=== PATIENT | male | born 1945 | race Caucasian/White ===

== ENCOUNTER → 2019-11-30 16:23 | Outpatient (BNVA) | payer MEDICARE, SELFPAY | PROVIDERS: Family Provider Family Medicine; PCP Family Medicine; Visit Provider Urology | DX: Z12.5 Encounter for screening for malignant neoplasm of prostate (principal); N47.1 Phimosis | CPT/HCPCS: 81001 ==

== ENCOUNTER → 2021-11-19 10:00 | Outpatient (BNVA) | payer MEDICARE, SELFPAY | PROVIDERS: PCP Family Medicine; Visit Provider Family Medicine | DX: R35.1 Nocturia (principal); I42.2 Other hypertrophic cardiomyopathy; D69.6 Thrombocytopenia, unspecified | CPT/HCPCS: 80053; 80061; 84153; 85025 ==

== ENCOUNTER → 2022-05-14 09:28 | Outpatient (BNVA) | payer MEDICARE, SELFPAY | PROVIDERS: PCP Family Medicine; Visit Provider Family Medicine | DX: I48.91 Unspecified atrial fibrillation (principal) | CPT/HCPCS: 80053; 85025 ==

== ENCOUNTER → 2023-02-12 09:02 | Outpatient (BNVA) | payer MEDICARE, SELFPAY | PROVIDERS: PCP Family Medicine; Visit Provider Family Medicine | DX: I10 Essential (primary) hypertension (principal) | CPT/HCPCS: 80053; 85025 ==

== ENCOUNTER → 2023-10-15 09:55 | Outpatient (BNVA) | payer MEDICARE, SELFPAY | PROVIDERS: PCP Family Medicine; Visit Provider Family Medicine | DX: I10 Essential (primary) hypertension (principal) | CPT/HCPCS: 80053; 80061; 85025 ==

== ENCOUNTER 2024-12-23 14:54 | Inpatient (IN) | payer MEDICARE, SELFPAY ==
[2024-12-23] VITALS (52 sets, daily range): BP systolic 70–156; BP diastolic 46–100; PULSE 70–127; RESP 16–38; TEMP 36.4; O2SAT 87–100; BMI 29.1
--- NOTE | 2024-12-23 15:07 | ECG_ITS ---
[facility] Test Date: 2024-12-23 Pat Name: John Gomes Department: Room: Gender: Male Information Specialist: : 1945 Requested By: Fer Gibbs Order Number: [id number] Reading MD: DEMETRIS ARCEO Measurements Intervals [place] Rate: 84 P: 0 NV: 0 QRS: -24 QRSD: 122 T: 143 QT: 385 QTc: 458 Interpretive Statements ATRIAL FIBRILLATION BORDERLINE LEFT AXIS DEVIATION [QRS AXIS < -20] POSSIBLE RIGHT VENTRICULAR CONDUCTION DELAY [RSR (QR) IN V1/V2] POSSIBLE LEFT VENTRICULAR HYPERTROPHY [VOLTAGE CRITERIA PLUS LAE OR QRS WIDENING] ST DEVIATION AND MARKED T-WAVE ABNORMALITY, CONSIDER ANTEROLATERAL ISCHEMIA [-0.5+ mV T-WAVE IN I/aVL/V3-V6] Compared to ECG 10/07/2019 10:33:16 T-wave abnormality now present Possible ischemia now present Atrial flutter no longer present ST (T wave) deviation no longer present Electronically Signed On 12-27-2024 23:42:39 GRADUATE ADVISOR by DEMETRIS ARCEO [email or web address] [id number]
--- NOTE | 2024-12-23 15:21 | ECG_ITS ---
[facility] Test Date: 2024-12-23 Pat Name: John Gomes Department: Room: Gender: Male Senior Financial Analyst: : 1945 Requested By: Alida Gibbs Order Number: [id number] Reading MD: DEMETRIS ARCEO Measurements Intervals [place] Rate: 83 P: 0 MN: 0 QRS: -10 QRSD: 122 T: 139 QT: 385 QTc: 453 Interpretive Statements ATRIAL FIBRILLATION POSSIBLE LEFT VENTRICULAR HYPERTROPHY [VOLTAGE CRITERIA PLUS LAE OR QRS WIDENING] ST DEVIATION AND MARKED T-WAVE ABNORMALITY, CONSIDER LATERAL ISCHEMIA [-0.5+ mV T-WAVE IN I/aVL/V5/V6] Compared to ECG 12/23/2024 15:09:34 No significant changes Electronically Signed On 12-27-2024 23:42:32 REFINISH TECHNICIAN by DEMETRIS ARCEO [email or web address] [id number]
--- NOTE | 2024-12-23 15:21 | XR_ITS ---
WS: [id number] Exam: XR chest 1V portable [id number] Date/Time of Exam: 12/23/2024 3:22 PM Reason For Exam: Shortness of breath Comparison 12/21/2023. Lungs are fully expanded and clear. Normal cardiomediastinal silhouette. Median sternotomy and signs of previous CABG surgery. No pleural effusion. Unremarkable bony structures. XR/XR chest 1V portable [id number] IMPRESSION: 1. Negative chest.
--- NOTE | 2024-12-23 15:47 | W.ED.SOB ---
HPI - SOB/Dyspnea General: Chief Complaint: Shortness of Breath/Dyspnea Stated Complaint: SOB,dizzy Time Seen by Provider: 12/23/24 15:40 History of Present Illness: HPI Narrative: 71-year-old male presents emergency room complaining of shortness of breath weakness for the last week. Patient has a history of congestive heart failure few weeks ago they increased his Lasix added a second medicine but he was taken off of it after a few days due to his kidney function worsening. He has chronic orthopnea. He has noticed worsening shortness of breath both conversationally and with exertion. No fever sweats or chills. Patient has a history of atrial fibrillation. Associated symptoms: Deny abdominal pain, chest pain or fever(s) Related Data Home Medications ?Medication ?Instructions ?Recorded ?Confirmed apixaban 5 mg tablet (Eliquis) 5 mg PO BID 11/30/19 12/23/24 baclofen 10 mg tablet 10 mg PO QDAY 11/30/19 12/23/24 furosemide 20 mg tablet 20 mg PO QAM 11/30/19 12/23/24 irbesartan 150 mg tablet 150 mg PO QDAY 11/30/19 12/23/24 melatonin 10 mg capsule 10 mg PO ONCE 11/30/19 12/23/24 metoprolol succinate 50 mg 50 mg PO QDAY 11/30/19 12/23/24 tablet,extended release 24 hr rosuvastatin 20 mg tablet 20 mg PO DAILY 11/13/21 12/23/24 potassium chloride 20 mEq 20 meq PO BID 12/23/24 12/23/24 tablet,extended release(part/cryst) spironolactone 25 mg tablet 25 mg PO DAILY 12/23/24 12/23/24 Allergies Allergy/AdvReac Type Severity Reaction Status Date / Time dabigatran etexilate (From Allergy NA Verified 11/13/21 13:09 Pradaxa) diltiazem Allergy Heart Verified 11/13/21 13:09 issues verapamil Allergy Heart Verified 11/13/21 13:09 issues Review of Systems Const: Denies: fever(s) or chills Card: Denies: chest pain Resp: Reports: dyspnea GI: Denies: abdominal pain : Denies: dysuria, urinary frequency or urinary urgency Musc: Denies: neck pain or back pain Skin/Breast: Denies: rash PFSH ED PFSH: Medical History COPD (chronic obstructive pulmonary disease) ED (erectile dysfunction) Prostate cancer screening Epididymitis Phimosis Surgical History Hx of CABG S/P carpal tunnel release S/P appendectomy Family History Family/Other CAD (coronary artery disease) Stroke Social History Smoking and tobacco/nicotine status: current every day tobacco/nicotine user smokeless tobacco Smokeless tobacco user: chewing tobacco Alcohol intake: never Substance/Drug Use: never Marital status: Current occupational status: retired Physical Exam Const: GENERAL APPEARANCE: cooperative ORIENTATION/CONSCIOUSNESS: Yes awake, Yes oriented to person, Yes oriented to place and Yes oriented to time HENMT: COMMON NORMALS: normocephalic and atraumatic HEAD & SCALP: normocephalic and atraumatic Resp: AUSCULTATION: crackles Cardio: COMMON NORMALS: regular rate, regular rhythm and No murmurs present (Cardio) RATE: regular rate RHYTHM: regular rhythm GI: COMMON NORMALS: Soft to palpation and No hepatosplenomegaly present AUSCULTATION: Yes normoactive bowel sounds PALPATION: Yes Soft to palpation, No Tenderness to palpation present (GI), No Guarding due to palpation present (GI) and Yes No hepatosplenomegaly present Extremity: COMMON NORMALS: normal to inspection, capillary refill normal, no clubbing, cyanosis or edema, no calf tenderness and no pedal edema Neuro: SENSORIUM/ORIENTATION: Yes oriented to person, Yes oriented to place and Yes oriented to time Skin: COMMON NORMALS: no rashes or lesions noted GENERAL SKIN EXAM: no rashes or lesions noted Course Vital Signs: Vital signs: Vital Signs Temperature 98.3 F 12/24/24 04:00 Pulse Rate 78 12/24/24 06:00 Respiratory Rate 19 H 12/24/24 05:15 Blood Pressure 76/57 12/24/24 05:15 Pulse Oximetry 97 12/24/24 05:15 Oxygen Delivery Me thod Nasal Cannula 12/24/24 00:55 Oxygen Flow Rate 2 12/24/24 00:55 MDM - SOB/Dyspnea Medical Decision Making Patient continues to be pain-free. His initial blood pressure was little over 100 and his blood pressure can drop we will put him on a low-dose dopamine and gave a fluid bolus of 500 mL over an hour. His pressure improved with this however his first troponin came back over 200 his initial EKG showed a little bit of lateral ST depression particularly in V4 and very subtly in V5 there is no ST elevation. His second EKG showed marked change with T wave inversion and 2 3 aVF as well as V3 and 4. There is no ST depression as well in V45 and 6. Despite this he continues to remain pain-free. Stat echo was ordered. He was also noted to begin to need oxygen was started on 2 L his influenza is positive chest x-ray did not show any significant pulmonary edema or infiltrates. Discussed with Dr. Brown he concurs with the echo I will start him on a heparin also started the patient on Levophed. Dr. Jacome will admit for the hospitalist service. Medical Records I reviewed the patient's medical records. Lab Data I reviewed the patient's lab results. 12/24/24 05:21 12/24/24 05:21 Labs/Radiology: Radiology Impressions Chest X-Ray 12/23/24 15:21 IMPRESSION: 1. Negative chest. Chest/Abdomen/Pelvis CT 12/23/24 17:36 IMPRESSION: 1. No acute abnormality. 2. Mild pulmonary emphysematous changes. 3. Atherosclerosis including coronary artery calcification. IMPRESSION: 1. No acute abnormality. 2. Severe atherosclerosis. 3. Questionable tiny gallstones versus gallbladder sludge. No signs of cholecystitis. COMMENTS: Consistent with the [place] [employer]'s Incidental Findings Committee white paper (J Am Ankit Radiol 2018): Any incidental renal lesion less than 1 cm or classified as too small to characterize, or any incidental cystic renal lesion characterized as simple-appearing, is likely benign. No follow-up imaging is recommended for these lesions per consensus recommendations based on imaging criteria. Laboratory Results WBC 5.94 10^3/uL (3.29-11.43) 12/23/24 16:45 RBC 4.97 10^6/uL (3.85-5.65) 12/23/24 16:45 Hgb 15.10 g/dL (11.27-16.99) 12/23/24 16:45 Hct 45.9 % (37-53) 12/23/24 16:45 MCV 92.4 fl (82-101) 12/23/24 16:45 MCH 30.4 pg (27-33) 12/23/24 16:45 MCHC 32.9 g/dL (30-55) 12/23/24 16:45 RDW 13.7 % (12.1-15.1) 12/23/24 16:45 Plt Count 119 10^3/cmm (157-399) L 12/23/24 16:45 MPV 10.7 fL (7.4-10.4) H 12/23/24 16:45 Neut % (Auto) 79.8 % 12/23/24 16:45 Lymph % (Auto) 10.1 % 12/23/24 16:45 [place] % (Auto) 9.3 % 12/23/24 16:45 Eos % (Auto) 0.3 % 12/23/24 16:45 Baso % (Auto) 0.3 % 12/23/24 16:45 Neut # (Auto) 4.74 10^3/uL (1.8-7.7) 12/23/24 16:45 Lymph # (Auto) 0.6 10^3/uL (0.8-4.8) L 12/23/24 16:45 [place] # (Auto) 0.6 10^3/uL (0.2-0.9) 12/23/24 16:45 Eos # (Auto) 0.0 10^3/uL (0.0-0.8) 12/23/24 16:45 Baso # (Auto) 0.0 10^3/uL (0.0-0.1) 12/23/24 16:45 Nucleated RBC % (auto) 0 % 12/23/24 16:45 Nucleated RBCs # 0.0 /100WBC 12/23/24 16:45 Sodium 135 mmol/L (136-145) L 12/23/24 16:45 Potassium 4.8 mmol/L (3.5-5.1) 12/23/24 16:45 Chloride 94 mmol/L (98-107) L 12/23/24 16:45 Carbon Dioxide 29 mmol/L (22-29) 12/23/24 16:45 Anion Gap 16.8 (5-19) 12/23/24 16:45 BUN 56 mg/dL (8-23) H 12/23/24 16:45 Creatinine 2.0 mg/dL (0.7-1.2) H 12/23/24 16:45 GFR Calculation Not Reportable 12/23/24 16:45 Glucose 116 mg/dL (65-115) H 12/23/24 16:45 Calculated Osmolality 296 mOsm/kg (285-295) H 12/23/24 16:45 Lactic Acid 1.4 mmol/L (0.5-2.2) 12/23/24 16:45 Calcium 9.5 mg/dL (8.5-10.5) 12/23/24 16:45 Iron 27 ug/dL (59-158) L 12/23/24 16:45 TIBC 232 mcg/dl 12/23/24 16:45 % Saturation 11.6 % (20-50) L 12/23/24 16:45 Unsat Iron Binding 205 ug/dL (112-347) 12/23/24 16:45 Total Bilirubin 0.8 mg/dL (0.15-1.2) 12/23/24 16:45 AST 17 U/L (0-40) 12/23/24 16:45 ALT 11 U/L (0-41) 12/23/24 16:45 Alkaline Phosphatase 71 U/L (40-130) 12/23/24 16:45 Troponin T Baseline 202 ng/L (0-15) H* 12/23/24 16:45 NT-Pro-B Natriuret Pep 4522 pg/mL (0-450) H 12/23/24 16:45 Total Protein 7.2 g/dL (6.6-8.7) 12/23/24 16:45 Albumin 3.8 g/dL (3.5-5.2) 12/23/24 16:45 Globulin 3.4 g/dL (1.3-4.6) 12/23/24 16:45 Vitamin B12 452 pg/mL (232-1245) 12/23/24 16:45 Procalcitonin 0.16 ng/mL (0-0.5) 12/23/24 16:45 Influenza A (PCR) Positive (Negative) 12/23/24 15:13 Influenza Type B (PCR) Negative (Negative) 12/23/24 15:13 RSV (PCR) Negative (Negative) 12/23/24 15:13 SARS-CoV-2 (PCR) Negative (Negative) 12/23/24 15:13 All radiology interpretation(s) finalized by discharge Discharge Plan Discharge Patient Disposition: Admitted As Inpatient Admit Provider: Nitin Leigh Clinical Impression: Non-ST elevation [place] (NSTEMI), YANET (acute kidney injury), Influenza A, CHF (congestive heart failure) Condition: Stable Coding Level of Care Code ED Dish Room Worker for Palma Gomez
[2024-12-23 15:55] LABS: Influenza A POSITIVE (Negative); Influenza B NEGATIVE (Negative); Respiratory Syncytial Virus Ce NEGATIVE (Negative); SARS-CoV-2 PCR NEGATIVE (Negative)
--- NOTE | 2024-12-23 16:51 | USCV_ITS ---
John Gomes Age: 79 Gender: M : 1945 Exam Date: 12/23/2024 17:31 Ordering Phys: Fer Gonzalez DO Technologist: CT [place] [facility] [place]ication: hf BP: 141 / 76 HR: 104 Rhythm: Sinus Technical Quality: Adequate MEASUREMENTS (Male / Female) Normal Values 2D ECHO LVOT Diameter 2.0 cm LV Ejection Fraction MOD 4C 33.9 % LV Ejection Fraction MOD 2C 39.9 % LV Ejection Fraction 2C AL 51.9 % LA Diameter 4.7 cm RA Systolic Volume 4C AL 54.0 ml RA Systolic Volume 4C MOD 55.0 ml LA Sys Volume AL 60.0 cm cubed LA Sys Volume Index AL 27.9 cm cubed/m squared Aorta at Sinotubular Diameter 2.3 cm M-MODE LA Ao Ratio MM 0.5 AV Cusp Separation MM 4.0 cm DOPPLER AV Peak Velocity 140.0 cm/s LVOT Peak Velocity 74.0 cm/s AV Area Cont Eq vti 1.9 cm squared AV Area Cont Eq pk 1.6 cm squared MV Peak Velocity 104.0 cm/s MV Area PHT 3.3 cm squared Mitral E to A Ratio 0.8 TR Peak Velocity 237.0 cm/s TR Peak Gradient 22.5 mmHg TV Peak E Velocity 99.0 cm/s PV Peak Velocity 98.0 cm/s FINDINGS Left Ventricle Left ventricle is normal in size. Severe left ventricular hypertrophy. LV systolic function is normal with EF of 50-55%. Right Ventricle Grossly normal Right Atrium Normal in size Left Atrium Dilated Mitral Valve Mild mitral annular calcification. Mild mitral regurgitation. Aortic Valve Grossly normal. No significant stenosis or regurgitation Tricuspid Valve Insufficient TR jet to calculate RVSP Pulmonic Valve Not well visualized Pericardium Grossly normal Aorta Not well visualized IVC Not well visualized CONCLUSIONS Severe left ventricular hypertrophy. LV systolic function is normal with EF of 50-55%. Left atrial dilation Mild mitral regurgitation. Toñito Brown MD (Electronically Signed) Final Date: 23 December 2024 18:26 S
[2024-12-23 16:53] LABS: Basophils % 0.3 %; Eosinophils % 0.3 %; Hematocrit 45.9 % (37-53); Lymphocytes # 0.6 10^3/uL (0.8-4.8); Lymphocytes % 10.1 %; Mean Corpuscular HGB Conc 32.9 g/dL (30-55); Mean Corpuscular Hemoglobin 30.4 pg (27-33); Mean Corpuscular Volume 92.4 fl (82-101); Mean Platelet Volume 10.7 fL (7.4-10.4); Monocytes # 0.6 10^3/uL (0.2-0.9); Monocytes % 9.3 %; Neutrophils # 4.74 10^3/uL (1.8-7.7); Neutrophils % 79.8 %; Nucleated Red Blood Cells % 0 %; Platelet Count 119 10^3/cmm (157-399); Red Blood Count 4.97 10^6/uL (3.85-5.65); Red Cell Distribution Width 13.7 % (12.1-15.1); White Blood Count 5.94 10^3/uL (3.29-11.43)
[2024-12-23] MEDS: DOPamine drip 400 MG/250 ML PREMIX 17.27 MG IV (17:02)
--- NOTE | 2024-12-23 17:07 | PC.NURSE ---
Dr. Gonzalez notified of pt's decreased b/p, pt placed in trendelenburg. manual b/p 90/50 post Dopamine gtt admin and changed pt position. pt AOx4, states feels weak/tired.
[2024-12-23 17:19] LABS: Alanine Aminotransferase 11 U/L (0-41); Albumin Level 3.8 g/dL (3.5-5.2); Alkaline Phosphatase 71 U/L (40-130); Anion Gap 16.8 (5-19); Aspartate Amino Transferase 17 U/L (0-40); Blood Urea Nitrogen 56 mg/dL (8-23); Calcium 9.5 mg/dL (8.5-10.5); Carbon Dioxide 29 mmol/L (22-29); Chloride 94 mmol/L (98-107); Creatinine Clr Calc Pharmacy 34.7164; Globulin 3.4 g/dL (1.3-4.6); Glucose 116 mg/dL (65-115); Osmolality Calculated 296 mOsm/kg (285-295); Potassium 4.8 mmol/L (3.5-5.1); Sodium 135 mmol/L (136-145); Total Bilirubin 0.8 mg/dL (0.15-1.2); Total Protein 7.2 g/dL (6.6-8.7)
--- NOTE | 2024-12-23 17:21 | ECG_ITS ---
[facility] Date: 2024[facility]23 Pat Name: John Gomes Department: Room: Gender: Male Program Evaluator: : 1945 Requested By: Alida Gibbs Order Number: [id number] Reading MD: DEMETRIS ARCEO Measurements Intervals [place] Rate: 84 P: 0 TX: 0 QRS: 51 QRSD: 126 T: -81 QT: 385 QTc: 455 Interpretive Statements ATRIAL FIBRILLATION POSSIBLE RIGHT VENTRICULAR CONDUCTION DELAY [RSR (QR) IN V1/V2] POSSIBLE LEFT VENTRICULAR HYPERTROPHY [VOLTAGE CRITERIA PLUS LAE OR QRS WIDENING] MODERATE T-WAVE ABNORMALITY, CONSIDER ANTEROLATERAL ISCHEMIA [-0.1+ mV T-WAVE IN V3-V6] Compared to ECG 12/23/2024 15:51:31 No significant changes Electronically Signed On 12-27-2024 23:52:02 FIRE TRUCK DRIVER by DEMETRIS ARCEO [email or web address] [id number]
[2024-12-23 17:26] LABS: Troponin(5th) Baseline 202 ng/L (0-15)
--- NOTE | 2024-12-23 17:36 | CTR_ITS ---
PROCEDURE INFORMATION: Exam: CT Chest Without Contrast; Diagnostic Exam date and time: 12/23/2024 6:49 PM Age: 79 years old Clinical indication: Abnormal findings; Abnormal lab test; Abnormal kidney function lab tests; Other: N/a; Cough and shortness of breath; Prior surgery; Surgery date: 6+ months; Surgery type: Cabg. Appy; Cough with SOB and romy. History of copd. ; Additional info: Copd/pna/romy TECHNIQUE: Imaging protocol: Diagnostic computed tomography of the chest without contrast. Radiation optimization: All CT scans at this facility use at least one of these dose optimization techniques: automated exposure control; mA and/or kV adjustment per patient size (includes targeted exams where dose is matched to clinical indication); or iterative reconstruction. COMPARISON: CR XR chest 1V portable [id number] 12/23/2024 3:24 PM RADIATION DOSE METRICS: Total DLP (mGy-cm): 1071.21 FINDINGS: Lungs: Mild paraseptal pulmonary emphysematous changes. Minimal bilateral subpleural reticulation noted suggesting chronic interstitial lung changes. Minimal bibasilar subsegmental atelectasis. Otherwise, the lungs are clear. Pleural spaces: Unremarkable. No pneumothorax. No pleural effusion. Heart: The heart is enlarged. Lymph nodes: Unremarkable. No enlarged lymph nodes. Vasculature: Extensive calcific plaque involves the thoracic aorta and coronary arteries. The thoracic aorta is free of aneurysm. Extensive calcific plaque involves the abdominal aorta and iliac arteries. Bones/joints: Multilevel degenerative changes involve the spine. No acute bony abnormality. Sternotomy wires present. Soft tissues: Unremarkable. PROCEDURE INFORMATION: Exam: CT Abdomen And Pelvis Without Contrast Exam date and time: 12/23/2024 6:49 PM Age: 79 years old Clinical indication: Abnormal findings; Abnormal lab test; Abnormal kidney function lab tests; Other: N/a; Cough and shortness of breath; Prior surgery; Surgery date: 6+ months; Surgery type: Cabg. Appy; Cough with SOB and romy. History of copd. ; Additional info: Copd/pna/romy TECHNIQUE: Imaging protocol: Computed tomography of the abdomen and pelvis without contrast. Radiation optimization: All CT scans at this facility use at least one of these dose optimization techniques: automated exposure control; mA and/or kV adjustment per patient size (includes targeted exams where dose is matched to clinical indication); or iterative reconstruction. COMPARISON: MR MRCP [id number] 08/19/2019 8:30 AM RADIATION DOSE METRICS: Total DLP (mGy-cm): 1971.21 FINDINGS: Liver: Normal. No mass. Gallbladder and biliary ducts: The gallbladder is contracted with tiny gallstones versus gallbladder sludge. Pancreas: Normal. No ductal dilation. Spleen: Normal. No splenomegaly. Adrenal glands: Increased adrenal nodularity noted without suspicious discrete adrenal nodule. Kidneys and ureters: Tiny left cortical renal cysts noted too small to characterize. Stomach and bowel: Scattered colon diverticula. No inflammatory change identified involving the GI tract. No signs of bowel obstruction. Appendix: No evidence of appendicitis. Intraperitoneal space: Unremarkable. No free air. No significant fluid collection. Vasculature: Unremarkable. No abdominal aortic aneurysm. Lymph nodes: Unremarkable. No enlarged lymph nodes. Urinary bladder: The urinary bladder is decompressed with a Yañez catheter. Reproductive: Unremarkable as visualized. Bones/joints: Mild degenerative changes involve the spine. No acute bony abnormality. Soft tissues: Unremarkable. CT/[place] [id number] IMPRESSION: 1. No acute abnormality. 2. Mild pulmonary emphysematous changes. 3. Atherosclerosis including coronary artery calcification. IMPRESSION: 1. No acute abnormality. 2. Severe atherosclerosis. 3. Questionable tiny gallstones versus gallbladder sludge. No signs of cholecystitis. COMMENTS: Consistent with the [employer] [employer]'s Incidental Findings Committee white paper (J Am Ankit Radiol 2018): Any incidental renal lesion less than 1 cm or classified as too small to characterize, or any incidental cystic renal lesion characterized as simple-appearing, is likely benign. No follow-up imaging is recommended for these lesions per consensus recommendations based on imaging criteria.
--- NOTE | 2024-12-23 17:37 | PM.HP ---
Providers/Chief Complaint Primary Care Provider: Emile Fatima MD Chief Complaint: SOB,dizzy History of Present Illness John Gomes is a 79 year old male with past medical history of CABG, hypertension, hyperlipidemia presents to the ER today because of difficulty in breathing which has been getting worse over last 1 week. Patient has a sick contacts with multiple family members having flu a currently. He has been complaining of occasional chest heaviness for last 3 to 4 days. Currently he denies of having any chest pain or heaviness. In the ER he was found to have hypotension with blood pressures of 70 systolic, baseline troponin of 200 and she was started on dopamine drip. Current on examination he is on 2 L of oxygen supplementation, dopamine of 4 with a heart rate of 110 bpm with a blood pressure of 130 systolic. Review of Systems General: Reports: 10 or more systems reviewed and unremarkable except in HPI and below Const: Denies: fever(s), chills, body aches, change in appetite, change in weight, malaise, night sweats, diaphoresis, change in sleep pattern, daytime sleepiness or snoring Eyes: Denies: change in vision, blurry vision, photophobia, eye discomfort or eye discharge ENMT: Denies: throat pain, enlarged tonsils, hoarseness, mouth pain, oral sores, dry mouth, tinnitus, nasal congestion or post nasal drip Card: Denies: chest pain, palpitations, irregular heart rhythm, edema, swelling of feet/ankles, lightheadedness, syncope, pre-syncope, dyspnea on exertion, orthopnea, leg pain with exertion or acrocyanosis Resp: Denies: dyspnea, productive cough, non-productive cough, wheezing, stridor, pain on inspiration, change in phlegm color, hemoptysis or chest congestion GI: Denies: abdominal pain, nausea, vomiting, hematemesis, coffee ground emesis, dysphagia, heartburn, diarrhea, constipation, bloating, GI cramping, change in bowel habits, pain on defecation, hematochezia or melena : Denies: flank pain, difficulty urinating, dysuria, urinary frequency, urinary urgency, urinary hesitancy, urinary dribbling, difficulty starting urination, change in urine stream, nocturia or hematuria Musc: Denies: neck pain, back pain, extremity pain, joint pain, joint swelling, joint redness, joint stiffness or limited range of motion Neuro: Denies: headache(s), numbness in extremities, weakness in extremities, sensory changes, lack of coordination, difficulty walking, frequent falls, dizziness, vertigo, confusion, Slurred speech present, difficulty communicating thoughts or seizure-like activity Psych: Denies: anxiety, depression, mood swings, panic attacks, hopelessness or irritability Endo: Denies: polyuria, polydipsia, tired all the time, cold intolerance, excessive sweating, flushing or heat intolerance Myron/Lymph: Denies: easy bruising or easy bleeding All/Imm: Denies: tongue swelling, facial swelling or acute wheezing Medications/Allergies Home Medications ?Medication ?Instructions ?Recorded ?Confirmed ?Last Taken ?Type apixaban 5 mg tablet (Eliquis) 5 mg PO BID 11/30/19 12/23/24 12/23/24 History baclofen 10 mg tablet 10 mg PO QDAY 11/30/19 12/23/24 12/23/24 History furosemide 20 mg tablet 20 mg PO QAM 11/30/19 12/23/24 12/22/24 History irbesartan 150 mg tablet 150 mg PO QDAY 11/30/19 12/23/24 12/23/24 History melatonin 10 mg capsule 10 mg PO ONCE 11/30/19 12/23/24 12/23/24 History metoprolol succinate 50 mg 50 mg PO QDAY 11/30/19 12/23/24 12/23/24 History tablet,extended release 24 hr rosuvastatin 20 mg tablet 20 mg PO DAILY 11/13/21 12/23/24 12/23/24 History potassium chloride 20 mEq 20 meq PO BID 12/23/24 12/23/24 Unknown History tablet,extended release(part/cryst) spironolactone 25 mg tablet 25 mg PO DAILY 12/23/24 12/23/24 12/23/24 History Allergies Allergy/AdvReac Type Severity Reaction Status Date / Time dabigatran etexilate (From Allergy NA Verified 11/13/21 13:09 Pradaxa) diltiazem Allergy Heart Verified 11/13/21 13:09 issues verapamil Allergy Heart Verified 11/13/21 13:09 issues PFSH Acute PFSH: Medical History (Updated 12/23/24 @ 18:40 by Nitin Leigh MD) COPD (chronic obstructive pulmonary disease) ED (erectile dysfunction) Prostate cancer screening Epididymitis Phimosis Surgical History (Updated 12/23/24 @ 18:40 by Nitin Leigh MD) Hx of CABG S/P carpal tunnel release S/P appendectomy Family History Family/Other CAD (coronary artery disease) Stroke Social History Smoking and tobacco/nicotine status: current every day tobacco/nicotine user smokeless tobacco Smokeless tobacco user: chewing tobacco Alcohol intake: never Substance/Drug Use: never Marital status: Current occupational status: retired Vitals/I&O/Wt Last Vital Signs Temp 97.6 F 12/23/24 14:59 Pulse 84 12/23/24 16:40 Resp 30 H 12/23/24 16:18 BP 71/50 12/23/24 16:40 Pulse Ox 94 12/23/24 16:40 O2 Del Method Room Air 12/23/24 16:40 12/23/24 12/23/24 12/23/24 06:59 14:59 22:59 Intake Total 0 / 0 Balance 0 / 0 Weight last 48 hrs Weight 92.079 kg Physical Exam Narrative: General: No acute distress, AO x3, nasal cannula, sick appearing, dehydrated HEENT: PERRLA, pupils bilaterally equal and reactive Chest: Bronchial breath sounds all over lung pack occasional rhonchi diffusely present all over lung pack CVS: S1-S2 regular, no murmurs, tachycardia, no gallops, no rubs Abdomen: Soft, nontender, no organomegaly, bowel sounds present Neuro: No focal deficits, no facial deformity, AO x3, power 5/5 in all limbs Data 12/23/24 16:45 12/23/24 16:45 A&P Assessment and plan (1) Shock: Concerns for cardiogenic shock. Currently patient is tachycardic. Switch from dopamine drip to Levophed. Wean keeping mean blood pressure over 65. Check blood cultures, urinalysis, urine culture, sputum culture, MRSA swab. Finish 1 L IV fluid bolus followed by normal saline at 75 cc/h. Plan on further fluid bolus depending on the EF on echocardiogram. Empirically start patient on IV vancomycin and Meropenem. Atypical coverage with azithromycin. (2) Non-ST elevation CT (NSTEMI): Complaining of mild chest pressure. Baseline troponin 200. Dynamic EKG changes with T wave inversions. Cycle troponins. Cardiology been consulted from ER. Start on heparin drip. Aspirin 325 mg one-time followed by 81 mg daily. Check A1c, lipid panel. Stat echocardiogram. (3) Acute kidney injury: Baseline creatinine normal last in October 2023. Currently 2. Could be in setting of shock along with home ARB, spironolactone. Patient has a history of phimosis. Strict input output charting, daily weights. Yañez catheterization. IV fluid as above. Monitor renal functions daily for now. (4) Hypoxia: Most likely in setting of COPD exacerbation in setting of influenza. Oxygen supplementation with saturation of 88%. Cannot rule out CHF though patient clinically seems dehydrated for now. Watch for fluid overload. (5) Influenza A: Supportive care. Start on Tamiflu 75 mg oral daily. Incentive spirometry, flutter valve. (6) COPD (chronic obstructive pulmonary disease): Solu-Medrol 125 mg stat followed by 40 mg every 6 hour. Pulmicort twice daily, ipratropium, Xopenex every 6 hours. (7) Hx of CABG: Plan CODE STATUS: Discussed in detail with the patient. and daughter will be the DPOA. Full code. Cardiac diet Protonix OPD prophylaxis Heparin drip will be sufficient for DVT prophylaxis PDMP PDMP Reviewed: Not Reviewed Attestations Medical Necessity Statement*: Admit to ICU further evaluation and management of cardiogenic shock, non-ST elevation CT, hypoxic respiratory failure in setting of COPD exacerbation due to influenza, YANET Critical Care Time: The high probability of a clinically significant, sudden or life threatening deterioration of the patient's [cardiac, renal, pulmonary] system(s) required my full and direct attention, intervention and personal management. The critical care time is as shown. This time is in addition to time spent performing any reported procedures but includes the following: [x] Data and vital sign review and interpretation [x] Patient assessment, examination and intervention [x] Documentation [x] Medication orders and management Critical Care Time (min): 80 Coding Level of Care Code Critical Care >/= 30 minutes Critical care time (in minutes): 80 The high probability of a clinically significant, sudden or life threatening deterioration, as referenced in this documentation, required my full and direct attention, intervention and personal management. The critical care time shown is in addition to time spent performing any reported separately billable procedures and includes the following: [x] Data and vital sign review and interpretation [x] Patient assessment, examination and intervention [x] Medication orders and management [x] Patient/Family updates as able [x] Care Coordination and Documentation. Other Coding Information This patient has a high probability of clinically significant, sudden or life threatening deterioration of the patient's (neurological/pulmonary/cardiac/renal/ID/endocrine) systems required my full, direct attention, the highest level of physician preparedness for urgent intervention and personal management. I managed/supervised life or organ supporting interventions that required frequent physician assessment. I devoted my full attention in the ICU to the direct care of this patient for the period of time indicated above. Time I spent with family or surrogate(s) is included only if the patient was incapable of providing necessary information or participating in decision making. This time includes the following services provided: Telemetry review Hemodynamic interpretation, assessment and management Review and interpretation of CXR Review and interpretation of lab values Review and interpretation of microbiologic data and culture results Review of medications and administration Review and interpretation of Nutrition requirements and management Discussion of management with other consultants and services Clinical update to family members Diagnoses Shock R57.9 Non-ST elevation CT (NSTEMI) I21.4 Acute kidney injury N17.9 Hypoxia R09.02 Influenza A J10.1 COPD (chronic obstructive pulmonary disease) J44.9 Hx of CABG Z95.1
[2024-12-23] MEDS: aspirin 325 mg Tablet PO (18:02)
[2024-12-23] MEDS: methylPREDNISolone sod succ 125 mg/2 mL INJ IVP (18:03)
[2024-12-23] MEDS: pantoprazole 40 mg SDV IVP (18:05)
[2024-12-23 18:09] LABS: Iron 27 ug/dL (59-158); Percent Saturation 11.6 % (20-50); Total Iron Binding Capacity 232 mcg/dl; Unsaturated Iron Binding 205 ug/dL (112-347)
[2024-12-23] MEDS: norepinephrine 4 MG/250 ML BAG 30 MG IV (18:11)
[2024-12-23 18:12] LABS: Lactic Sepsis W/Reflex 1.4 mmol/L (0.5-2.2)
[2024-12-23] MEDS: heparin 5,000 unit/mL INJ 1 mL IVP (18:14)
[2024-12-23 18:15] LABS: NT Pro B Type Natriuretic Pept 4522 pg/mL (0-450)
[2024-12-23] MEDS: heparin drip 25,000 UNIT/500 ML PREMIX 26 UNIT IV (18:16)
[2024-12-23] MEDS: sodium chloride 0.9% 500 ML IV (18:21)
--- NOTE | 2024-12-23 18:22 | PC.NURSE ---
hold NS @75mL/hr per Dr. Gonzalez and give 500mL NS bolus
[2024-12-23 18:26] LABS: Procalcitonin 0.16 ng/mL (0-0.5); Vitamin B12 452 pg/mL (232-1245)
--- NOTE | 2024-12-23 18:31 | PHA.VACGOAL ---
Vancomycin Goal - Goal Vancomycin Goal:: 15-20 mg/L Vancomycin Indication:: Other - Therapy Current therapy:: Meropenem Day of therpy:: Day []of [] . Actual body weight (kg): 203 lb - Data Labs: WBC 5.94 10^3/uL (3.29-11.43) 12/23/24 16:45 RBC 4.97 10^6/uL (3.85-5.65) 12/23/24 16:45 Hgb 15.10 g/dL (11.27-16.99) 12/23/24 16:45 Hct 45.9 % (37-53) 12/23/24 16:45 MCV 92.4 fl (82-101) 12/23/24 16:45 MCH 30.4 pg (27-33) 12/23/24 16:45 MCHC 32.9 g/dL (30-55) 12/23/24 16:45 RDW 13.7 % (12.1-15.1) 12/23/24 16:45 Sodium 135 mmol/L (136-145) L 12/23/24 16:45 Potassium 4.8 mmol/L (3.5-5.1) 12/23/24 16:45 Chloride 94 mmol/L (98-107) L 12/23/24 16:45 Carbon Dioxide 29 mmol/L (22-29) 12/23/24 16:45 Anion Gap 16.8 (5-19) 12/23/24 16:45 BUN 56 mg/dL (8-23) H 12/23/24 16:45 Creatinine 2.0 mg/dL (0.7-1.2) H 12/23/24 16:45 GFR Calculation Not Reportable 12/23/24 16:45 Last dialysis session:: N/A Treatment plan:: new consult Regimen:: LOADING DOSE OF 3000 MG X 1 PER DOSING PROTOCOL. MAINTENANCE DOSE OF 1250 MG Q24H Follow up:: WILL CONTINUE TO MONITOR AND FOLLOW UP DAILY
--- NOTE | 2024-12-23 18:39 | PC.NURSE ---
per Dr. Leigh to infuse total of 1L NS over a few hours, and then start order for NS 75mL/hr after.
--- NOTE | 2024-12-23 18:39 | PC.NURSE ---
pt placed on 2L NC d/t oxygen saturation decreasing to 87% on room air
--- NOTE | 2024-12-23 18:54 | PC.NURSE ---
blood cultures ordered, has not been drawn at this time; delaying abx
--- NOTE | 2024-12-23 19:41 | PC.NURSE ---
ATTEMPTED TO CALL REPORT AT 193
--- NOTE | 2024-12-23 19:42 | PC.NURSE ---
ATTEMPTED TO CALL REPORT AT 1942
[2024-12-23 20:11] LABS: MRSA PCR OZH (swab) NOT DETECTED (Negative)
[2024-12-23] MEDS: levalbuterol 0.63 mg/3 mL Neb INHALATION (20:45)
[2024-12-23] MEDS: budesonide 0.5 mg/2 mL Neb INHALATION (20:45)
[2024-12-23] MEDS: ipratropium 0.5 mg/2.5 mL Neb INHALATION (20:45)
--- NOTE | 2024-12-23 21:21 | ECG_ITS ---
[facility] Pat Name: John Gomes Department: Room: ICU10 Gender: Male Roller Man: : 1945 Requested By: Alida Gibbs Order Number: [id number] Reading MD: DEMETRIS ARCEO Measurements Intervals Roll Rate: 85 P: 0 VT: 0 QRS: -10 QRSD: 122 T: 148 QT: 397 QTc: 473 Interpretive Statements ATRIAL FIBRILLATION POSSIBLE LEFT VENTRICULAR HYPERTROPHY [VOLTAGE CRITERIA PLUS LAE OR QRS WIDENING] ST DEVIATION AND MARKED T-WAVE ABNORMALITY, CONSIDER ANTEROLATERAL ISCHEMIA [-0.5+ mV T-WAVE IN I/aVL/V3-V6] Compared to ECG 12/23/2024 17:25:24 No significant changes Electronically Signed On 12-27-2024 23:51:49 PLASMA CENTER TECHNICIAN by DEMETRIS ARCEO [id number]
[2024-12-23 21:22] LABS: Thyroid Stimulating Hormone 2.34 uIU/mL (0.27-4.20)
[2024-12-23] MEDS: methylPREDNISolone sod succ 40 mg/mL INJ IVP (21:46)
[2024-12-23] MEDS: vancomycin 1,250 MG/250 ML PIGGYBACK 166.67 MG IV (21:46)
[2024-12-23] MEDS: meropenem 1,000 mg SDV 1000 MG IVP (21:46)
[2024-12-23] MEDS: sodium chloride 0.9% 1,000 ML 75 ML IV (21:47)
[2024-12-23 22:02] LABS: Troponin 5 2HR Delta -20.9 ABS# (0-10)
[2024-12-23 22:02] LABS: Troponin 5 6HR Delta -27.8 ng/L (0-12)
[2024-12-23 22:03] LABS: Troponin 5 2HR 181.1 ng/L (0-15)
[2024-12-23 22:03] LABS: Troponin 5 6HR 174.2 ng/L (0-15)
[2024-12-24] VITALS (60 sets, daily range): BP systolic 76–143; BP diastolic 46–114; PULSE 66–130; RESP 14–46; TEMP 36.1–36.8; O2SAT 84–100
[2024-12-24] MEDS: ipratropium 0.5 mg/2.5 mL Neb INHALATION ×4 (01:28→19:44)
[2024-12-24] MEDS: levalbuterol 0.63 mg/3 mL Neb INHALATION ×4 (01:28→19:44)
[2024-12-24 01:40] LABS: Partial Thromboplastin Time > 250.0 SECONDS (23.9-36.7)
[2024-12-24 02:21] LABS: Estmated Average Glucose 131; Hemoglobin A1C 6.2 % (4.0-6.0)
[2024-12-24] MEDS: methylPREDNISolone sod succ 40 mg/mL INJ IVP ×3 (03:38→18:05)
[2024-12-24] MEDS: pantoprazole 40 mg SDV IVP ×2 (05:16→18:05)
[2024-12-24 05:45] LABS: Hematocrit 44.4 % (37-53); Lymphocytes # 0.6 10^3/uL (0.8-4.8); Mean Corpuscular Hemoglobin 30.3 pg (27-33); Mean Corpuscular Volume 94.9 fl (82-101); Mean Platelet Volume 10.3 fL (7.4-10.4); Monocytes # 0.2 10^3/uL (0.2-0.9); Monocytes % 2.9 %; Neutrophils # 5.49 10^3/uL (1.8-7.7); Neutrophils % 87.9 %; Nucleated Red Blood Cells % 0 %; Platelet Count 103 10^3/cmm (157-399); Red Blood Count 4.68 10^6/uL (3.85-5.65); Red Cell Distribution Width 13.7 % (12.1-15.1); White Blood Count 6.24 10^3/uL (3.29-11.43)
[2024-12-24 06:21] LABS: Alanine Aminotransferase 8 U/L (0-41); Albumin Level 3.3 g/dL (3.5-5.2); Alkaline Phosphatase 67 U/L (40-130); Anion Gap 17.8 (5-19); Aspartate Amino Transferase 14 U/L (0-40); Blood Urea Nitrogen 50 mg/dL (8-23); Calcium 8.9 mg/dL (8.5-10.5); Carbon Dioxide 24 mmol/L (22-29); Chloride 100 mmol/L (98-107); Creatinine Clr Calc Pharmacy 36.5847; Globulin 3.2 g/dL (1.3-4.6); Glucose 140 mg/dL (65-115); Osmolality Calculated 298 mOsm/kg (285-295); Phosphorus 4.5 mg/dL (2.5-4.5); Potassium 5.8 mmol/L (3.5-5.1); Sodium 136 mmol/L (136-145); Total Bilirubin 0.5 mg/dL (0.15-1.2); Total Protein 6.5 g/dL (6.6-8.7)
[2024-12-24 06:35] LABS: Folate Level 9.4 ng/mL (4.5-32.2)
[2024-12-24] MEDS: budesonide 0.5 mg/2 mL Neb INHALATION ×2 (08:52→19:44)
[2024-12-24 09:37] LABS: Chol HDL Ratio 2.54 mg/dL (1.0-5.00); Cholesterol 89 mg/dL (0-200); HDL Cholesterol 35 mg/dL (60-100); LDL Cholesterol Calculated 41 mg/dL (50-129); LDL HDL Ratio 1.17 RATIO (0.00-3.22); Triglycerides 67 mg/dL (0-150)
[2024-12-24] MEDS: aspirin 81 mg EC Tablet PO (09:43)
[2024-12-24] MEDS: azithromycin 250 mg Tablet 500 MG PO (09:43)
[2024-12-24] MEDS: docusate sodium 100 mg Capsule PO ×2 (09:43→18:05)
[2024-12-24] MEDS: meropenem 1,000 mg SDV 1000 MG IVP ×2 (09:43→21:33)
[2024-12-24 09:44] LABS: Procalcitonin 0.12 ng/mL (0-0.5)
[2024-12-24] MEDS: water for injection-sterile 10 ML (09:44)
[2024-12-24 10:52] LABS: Vancomycin Random 15.2 ug/mL (20.0-40.0)
[2024-12-24] MEDS: sodium chloride 0.9% 1,000 ML 75 ML IV (11:04)
--- NOTE | 2024-12-24 14:49 | PM.CONSULT ---
Providers/Reason For Consult Consulting Physician/Specialty*: Toñito Brown MD/ Cardiology Reason for Consult*: Chest pain/ troponin elevation Attending Physician: Nitin Leigh MD Primary Care Provider: Emile Fatima MD History of Present Illness History of Present Illness John Gomes is a 79 year old male with past medical history of atrial fibrillation on Eliquis, history of cardiac surgery and after discussion with the patient he mentioned he had myectomy secondary to hypertrophic cardiomyopathy who presented to hospital with weakness, shortness of breath fatigue. He also tested positive for influenza. Says symptoms have been getting worse. Initial troponin was elevated at above 200 however has trended down. Echo shows normal LV systolic function however has severe LVH consistent with significant hypertrophic cardiomyopathy. EKG shows LVH changes. Also has intermittent drop in blood pressures requiring Levophed. Review of Systems Const: Denies: fever(s) or chills Card: Denies: chest pain Resp: Reports: dyspnea GI: Denies: abdominal pain : Denies: dysuria, urinary frequency or urinary urgency Musc: Denies: neck pain or back pain Skin/Breast: Denies: rash Medications/Allergies Home Medications ?Medication ?Instructions ?Recorded ?Confirmed ?Last Taken ?Type apixaban 5 mg tablet (Eliquis) 5 mg PO BID 11/30/19 12/23/24 12/23/24 History baclofen 10 mg tablet 10 mg PO QDAY 11/30/19 12/23/24 12/23/24 History furosemide 20 mg tablet 20 mg PO QAM 11/30/19 12/23/24 12/22/24 History irbesartan 150 mg tablet 150 mg PO QDAY 11/30/19 12/23/24 12/23/24 History melatonin 10 mg capsule 10 mg PO ONCE 11/30/19 12/23/24 12/23/24 History metoprolol succinate 50 mg 50 mg PO QDAY 11/30/19 12/23/24 12/23/24 History tablet,extended release 24 hr rosuvastatin 20 mg tablet 20 mg PO DAILY 11/13/21 12/23/24 12/23/24 History potassium chloride 20 mEq 20 meq PO BID 12/23/24 12/23/24 Unknown History tablet,extended release(part/cryst) spironolactone 25 mg tablet 25 mg PO DAILY 12/23/24 12/23/2425 History Allergies Allergy/AdvReac Type Severity Reaction Status Date / Time dabigatran etexilate (From Allergy NA Verified 11/13/21 13:09 Pradaxa) diltiazem Allergy Heart Verified 11/13/21 13:09 issues verapamil Allergy Heart Verified 11/13/21 13:09 issues Current Medications Generic Name Dose Route Start Last Admin Trade Name Enzoq PRN Reason Stop Dose Admin Aspirin 81 mg 12/24/24 09:00 12/24/24 09:43 Aspirin 81 Mg Ec Tablet PO 81 mg DAILY MAEVE Administration Azithromycin 500 mg 12/24/24 09:00 12/24/24 09:43 Azithromycin 250 Mg Tablet PO 500 mg DAILY MAEVE Administration Protocol Budesonide 0.5 mg 12/23/24 20:00 12/24/24 08:52 Budesonide 0.5 Mg/2 Ml Neb INHALATION 0.5 mg BID MAEVE Administration Docusate Sodium 100 mg 12/23/24 20:50 12/24/24 09:43 Docusate Sodium 100 Mg Capsule PO 100 mg BID MAEVE Administration Heparin Sodium/Sodium Chloride 25,000 unit in 500 mls @ 0 mls/hr 12/23/24 17:45 12/24/24 01:51 Heparin Drip IV 0 unit/kg/hr CONT MAEVE 0 mls/hr Titration Protocol Per Protocol Norepinephrine Bitartrate 4 mg in 250 mls @ 0 mls/hr 12/23/24 17:45 12/23/24 23:00 Levophed IV 2 mcg/min .Q0M MAEVE 7.5 mls/hr Titration Protocol Per Protocol Sodium Chloride 1,000 mls @ 75 mls/hr 12/23/24 17:45 12/24/24 11:04 Sodium Chloride 0.9% IV 75 mls/hr .[id number] MAEVE Administration Ipratropium [place] 0.5 mg 12/23/24 20:00 12/24/24 13:57 Ipratropium 0.5 Mg/2.5 Ml Neb INHALATION 0.5 mg Q6H.RESP MAEVE Administration Levalbuterol HCl 0.63 mg 12/23/24 20:00 12/24/24 13:57 Levalbuterol 0.63 Mg/3 Ml Neb INHALATION 0.63 mg Q6H.RESP MAEVE Administration Meropenem 1,000 mg 12/23/24 18:30 12/24/24 09:43 Meropenem 1,000 Mg Sdv IVP 1,000 mg Q12H MAEVE Administration Protocol Pantoprazole Sodium 40 mg 12/23/24 17:45 12/24/24 05:16 Pantoprazole 40 Mg Sdv IVP 40 mg Q12H MAEVE Administration PFSH Acute PFSH: Medical History History of hypertrophic cardiomyopathy COPD (chronic obstructive pulmonary disease) ED (erectile dysfunction) Prostate cancer screening Epididymitis Phimosis Surgical History Hx of CABG S/P carpal tunnel release S/P appendectomy Family History Family/Other CAD (coronary artery disease) Stroke Social History Smoking and tobacco/nicotine status: current every day tobacco/nicotine user smokeless tobacco Smokeless tobacco user: chewing tobacco Alcohol intake: never Substance/Drug Use: never Marital status: Current occupational status: retired Vitals/I&O/Wt Last Vital Signs Temp 98.3 F 12/24/24 04:00 Pulse 93 12/24/24 14:13 Resp 18 12/24/24 13:58 BP 101/74 12/24/24 09:00 Pulse Ox 95 12/24/24 13:58 O2 Del Method Room Air 12/24/24 13:58 O2 Flow Rate 3 12/24/24 08:52 12/23/24 12/24/24 12/24/24 22:59 06:59 14:59 Intake Total 49.127 / 49.127 1324.167 / 8049.175 0632.25 / 1006.25 Output Total 900 / 900 Balance 49.127 / 49.127 424.167 / 804.589 6114.25 / 1006.25 Weight last 48 hrs Weight 203 lb 8 oz Weight 203 lb 8 oz Weight 203 lb Physical Exam Narrative: GENERAL: Patient is alert, awake and oriented x3. [] NECK: No jugular vein distension. [] HEENT: No cyanosis. No icterus. No pallor. [] HEART: Irregularly irregular. Grade 3/6 systolic murmur LUNGS: Clear to auscultate bilaterally. [] CENTRAL NERVOUS SYSTEM: Grossly nonfocal. [] EXTREMITIES: Lower extremities with 1+ edema bilaterally Urinary Catheter Management: Coude: Cath Placed During This Visit: yes Reason for Continuing Indwelling Catheter: Accurate Measurement of Urinary Output in Critically Ill Patients Urinary Catheter Date of Insertion: 12/23/24 Urinary Catheter Time of Insertion: 18:33 Data 12/25/24 02:00 12/25/24 02:00 Micro: Microbiology 12/23/24 20:49 Blood Culture - Preliminary Blood SPECIMEN COLLECTED 12/23/24 20:47 Blood Culture - Preliminary Blood SPECIMEN COLLECTED A&P Assessment and plan (1) Shock: (2) Acute kidney injury: (3) Hypoxia: (4) Influenza A: (5) COPD (chronic obstructive pulmonary disease): (6) Hypertrophic cardiomyopathy: (7) CAD (coronary artery disease): Plan According to patient's history has hypertrophic cardiomyopathy and had myectomy performed in the past. Also had PCI done with at least 2 stents per his history. Can obtain records from [place]. Will recommend starting metoprolol as her tachycardia can worsen shock in setting of very small LV cavity and severe left ventricular hypertrophy. We will attempt to bring heart rates close to 60 to 70 bpm. YANET is improving. Continue IV fluids. Once stable, can plan on stress test as had significant troponin elevation Thank you for involving us with care of this patient. We will continue to follow. please call with questions PDMP PDMP Reviewed: Not Reviewed Consult Attestations Medical Necessity Statement: Care expected to cross 2 midnights. Coding Level of Care Code Acute Code for [facility] Fwd Diagnoses Shock R57.9 Acute kidney injury N17.9 Hypoxia R09.02 Influenza A J10.1 COPD (chronic obstructive pulmonary disease) J44.9 Hypertrophic cardiomyopathy I42.2 CAD (coronary artery disease) I25.10
--- NOTE | 2024-12-24 16:46 | P.PN_ITS ---
Subjective 2 Subjective: No acute events overnight. Patient has remained hemodynamically stable and afebrile. Levophed was turned off earlier today morning. Blood pressures otherwise have remained stable. He states he is feeling a lot better. On 2 L of oxygen supplementation. Denies any nausea, vomiting, headache. Vitals/I&O/Wt Last Vital Signs Temp 96.9 F L 12/24/24 15:46 Pulse 95 12/24/24 16:30 Resp 29 H 12/24/24 16:30 BP 127/97 12/24/24 16:30 Pulse Ox 92 12/24/24 16:30 O2 Del Method Room Air 12/24/24 13:58 O2 Flow Rate 3 12/24/24 08:52 12/24/24 12/24/24 12/24/24 06:59 14:59 22:59 Intake Total 1324.167 / 4413.864 5448.25 / 1306.25 Output Total 900 / 900 Balance 424.167 / 039.237 2177.25 / 1306.25 Weight last 48 hrs Weight 92.306 kg Weight 92.306 kg Weight 92.079 kg Physical Exam 2 Narrative: General: No acute distress, AO x3, nasal cannula, sick appearing, dehydrated HEENT: PERRLA, pupils bilaterally equal and reactive Chest: Bronchial breath sounds all over lung pack occasional rhonchi diffusely present all over lung pack CVS: S1-S2 regular, no murmurs, tachycardia, no gallops, no rubs Abdomen: Soft, nontender, no organomegaly, bowel sounds present Neuro: No focal deficits, no facial deformity, AO x3, power 5/5 in all limbs Urinary Catheter Management: Coude: Cath Placed During This Visit: yes Reason for Continuing Indwelling Catheter: Accurate Measurement of Urinary Output in Critically Ill Patients Urinary Catheter Date of Insertion: 12/23/24 Urinary Catheter Time of Insertion: 18:33 Data 12/24/24 05:21 12/24/24 05:21 Micro: Microbiology 12/24/24 14:12 Gram Stain - Final Sputum - Expectorated Sputum 12/23/24 20:49 Blood Culture - Preliminary Blood SPECIMEN COLLECTED 12/23/24 20:47 Blood Culture - Preliminary Blood SPECIMEN COLLECTED A&P Assessment and plan (1) Shock: Concerns for cardiogenic shock. Currently patient is tachycardic. Levophed drip currently on 2 in process of being weaned off. Wean keeping mean blood pressure over 65. Follow-up blood cultures, sputum culture, MRSA swab negative. Continue with NS at 75 cc/h. Continue with empiric meropenem, azithromycin for 3-day course. Discontinue vancomycin as MRSA swab negative. (2) Non-ST elevation PR (NSTEMI): Complaining of mild chest pressure. Baseline troponin more than 200. Trending down. Echocardiogram concerning for severe LVH with EF of 50 to 55% and left atrial dilatation. Patient gives history of HOCM post myomectomy in 2014. Continue with heparin drip for now. He does have history of CAD post PCI in the past. Plan for possible Lexiscan stress test if remains hemodynamically stable on Thursday. Continue with aspirin 81 mg daily. Appreciate A1c, lipid panel. Start on atorvastatin 20 mg oral daily. (3) Acute kidney injury: Baseline creatinine normal last in October 2023. Could be in setting of shock along with home ARB, spironolactone. Patient has a history of phimosis. Creatinine slightly improving to 1.9. Strict input output charting, daily weights. Yañez catheterization. IV fluid as above. Monitor renal functions daily for now. No concerns for acidosis. Mild hyperkalemia today. Treat with Kayexalate one-time. D10 along with 10 units of insulin. (4) Hypoxia: Most likely in setting of COPD exacerbation in setting of influenza. Oxygen supplementation with saturation of 88%. Cannot rule out CHF though patient clinically seems dehydrated for now. Watch for fluid overload. Appreciate CT chest done on 12/23. Concerning for mild right lower lobe pneumonic patch along with chronic emphysema. Continue with antibiotic as above. Follow-up sputum culture. De-escalate antibiotics as per sputum culture results. (5) Influenza A: Supportive care. Continue with Tamiflu 75 mg oral daily. Incentive spirometry, flutter valve. (6) COPD (chronic obstructive pulmonary disease): Wean Solu-Medrol 40 mg every 12 hours. Pulmicort twice daily, ipratropium, Xopenex every 6 hours. (7) Hx of CABG: Plan History of HOCM: Post myomectomy. Appreciate cardiology recommendations. Patient is off Levophed. Recommend low- dose metoprolol. Will give a trial of 25 mg of metoprolol one-time. If patient is able to tolerate with his blood pressures will start on standing 25 mg twice daily and uptitrate accordingly. CODE STATUS: Discussed in detail with the patient. and daughter will be the DPOA. Full code. Cardiac diet Protonix OPD prophylaxis Heparin drip will be sufficient for DVT prophylaxis PDMP PDMP Reviewed: Not Reviewed Attestations 2 Medical Necessity Statement*: Requires further hospitalization for management of hypoxic respiratory failure, cardiogenic shock in setting of right lower lobe pneumonia, influenza A, non-ST elevation PR, acute kidney injury in a patient with history of HOCM, CAD post PCI Critical Care Time: The high probability of a clinically significant, sudden or life threatening deterioration of the patient's [cardiac, pulmonary, renal] system(s) required my full and direct attention, intervention and personal management. The critical care time is as shown. This time is in addition to time spent performing any reported procedures but includes the following: [x] Data and vital sign review and interpretation [x] Patient assessment, examination and intervention [x] Documentation [x] Medication orders and management Critical Care Time (min): 90 Coding Level of Care Code Critical Care >/= 30 minutes Critical care time (in minutes): 90 The high probability of a clinically significant, sudden or life threatening deterioration, as referenced in this documentation, required my full and direct attention, intervention and personal management. The critical care time shown is in addition to time spent performing any reported separately billable procedures and includes the following: [x] Data and vital sign review and interpretation [x ] Patient assessment, examination and intervention [x] Medication orders and management [x] Patient/Family updates as able [x] Care Coordination and Documentation. Diagnoses Shock R57.9 Non-ST elevation PR (NSTEMI) I21.4 Acute kidney injury N17.9 Hypoxia R09.02 Influenza A J10.1 COPD (chronic obstructive pulmonary disease) J44.9 Hx of CABG Z95.1
[2024-12-24] MEDS: sodium polystyrene sulfonate 15 gm/60 mL Btl PO (18:05)
[2024-12-24] MEDS: insulin regular-human 100 units/1 mL 10 UNIT IVP (18:06)
[2024-12-24] MEDS: dextrose 10% 250 ML 1000 ML IV (18:06)
[2024-12-24 21:01] LABS: Partial Thromboplastin Time 61.5 SECONDS (23.9-36.7)
[2024-12-24] MEDS: heparin drip 25,000 UNIT/500 ML PREMIX 22 UNIT IV (23:56)
[2024-12-25] VITALS (34 sets, daily range): BP systolic 97–141; BP diastolic 63–103; PULSE 87–139; RESP 16–38; TEMP 36.4–37; O2SAT 91–97
[2024-12-25] MEDS: sodium chloride 0.9% 1,000 ML 75 ML IV (00:02)
[2024-12-25] MEDS: levalbuterol 0.63 mg/3 mL Neb INHALATION ×4 (01:25→21:17)
[2024-12-25] MEDS: ipratropium 0.5 mg/2.5 mL Neb INHALATION ×4 (01:25→21:17)
[2024-12-25 02:15] LABS: Basophils % 0.1 %; Eosinophils % 0.2 %; Hematocrit 40.7 % (37-53); Lymphocytes # 0.6 10^3/uL (0.8-4.8); Lymphocytes % 5.3 %; Mean Corpuscular HGB Conc 32.9 g/dL (30-55); Mean Corpuscular Hemoglobin 31.2 pg (27-33); Mean Corpuscular Volume 94.9 fl (82-101); Mean Platelet Volume 10.8 fL (7.4-10.4); Monocytes # 0.4 10^3/uL (0.2-0.9); Monocytes % 3.6 %; Neutrophils # 10.67 10^3/uL (1.8-7.7); Neutrophils % 90.5 %; Nucleated Red Blood Cells % 0 %; Platelet Count 125 10^3/cmm (157-399); Red Blood Count 4.29 10^6/uL (3.85-5.65); Red Cell Distribution Width 13.7 % (12.1-15.1); White Blood Count 11.78 10^3/uL (3.29-11.43)
[2024-12-25 02:35] LABS: Alanine Aminotransferase 8 U/L (0-41); Alkaline Phosphatase 64 U/L (40-130); Anion Gap 13.4 (5-19); Aspartate Amino Transferase 11 U/L (0-40); Blood Urea Nitrogen 39 mg/dL (8-23); Calcium 8.7 mg/dL (8.5-10.5); Carbon Dioxide 24 mmol/L (22-29); Chloride 105 mmol/L (98-107); Glucose 187 mg/dL (65-115); Magnesium 1.9 mg/dL (1.7-2.3); Osmolality Calculated 300 mOsm/kg (285-295); Phosphorus 2.3 mg/dL (2.5-4.5); Potassium 4.4 mmol/L (3.5-5.1); Sodium 138 mmol/L (136-145); Total Bilirubin 0.4 mg/dL (0.15-1.2)
[2024-12-25] MEDS: methylPREDNISolone sod succ 40 mg/mL INJ IVP ×2 (06:07→17:11)
[2024-12-25] MEDS: pantoprazole 40 mg SDV IVP ×2 (06:07→17:10)
[2024-12-25] MEDS: budesonide 0.5 mg/2 mL Neb INHALATION ×2 (08:00→21:17)
--- NOTE | 2024-12-25 08:30 | P.PN_ITS ---
Subjective 2 Subjective: Patient still feeling shortness of breath. No chest pain. Has uncontrolled atrial fibrillation today with heart rates in 120s. Vitals/I&O/Wt Last Vital Signs Temp 97.7 F 12/24/24 20:00 Pulse 110 H 12/25/24 08:08 Resp 18 12/25/24 07:50 BP 105/66 12/25/24 04:00 Pulse Ox 93 12/25/24 07:50 O2 Del Method Room Air 12/25/24 07:50 O2 Flow Rate 3 12/24/24 08:52 12/24/24 12/25/24 12/25/24 22:59 06:59 14:59 Intake Total 298.4 / 1604.65 1123.566 / 2728.216 Output Total 750 / 750 600 / 1350 Balance -451.6 / 854.65 523.566 / 1378.216 Weight last 48 hrs Weight 202 lb 6.4 oz Weight 202 lb 6.4 oz Weight 203 lb 8 oz Weight 203 lb 8 oz Weight 203 lb Physical Exam 2 Narrative: GENERAL: Patient is alert, awake and oriented x3. [] NECK: No jugular vein distension. [] HEENT: No cyanosis. No icterus. No pallor. [] HEART: Tachycardia, Irregularly irregular. Grade 3/6 systolic murmur LUNGS: Clear to auscultate bilaterally. [] CENTRAL NERVOUS SYSTEM: Grossly nonfocal. [] EXTREMITIES: Lower extremities with 1+ edema bilaterally Urinary Catheter Management: Coude: Cath Placed During This Visit: yes Reason for Continuing Indwelling Catheter: Accurate Measurement of Urinary Output in Critically Ill Patients Urinary Catheter Date of Insertion: 12/23/24 Urinary Catheter Time of Insertion: 18:33 Data 12/25/24 02:00 12/25/24 02:00 Micro: Microbiology 12/23/24 20:49 Blood Culture - Preliminary Blood NEGATIVE TO DATE 12/23/24 20:47 Blood Culture - Preliminary Blood NEGATIVE TO DATE 12/24/24 14:12 Gram Stain - Final Sputum - Expectorated Sputum A&P Assessment and plan (1) Shock: (2) Acute kidney injury: (3) Hypoxia: (4) Influenza A: (5) COPD (chronic obstructive pulmonary disease): (6) Hypertrophic cardiomyopathy: (7) CAD (coronary artery disease): Plan Patient's heart rate is uncontrolled. Will start amiodarone gtt. for now. Will also give metoprolol and start 25 mg. With hypertrophic cardiomyopathy and small sized LV cavity, patient will not tolerate tachycardia well and can get hypotensive. Based on heart rate control, can decide timing of lexiscan Thank you for involving us with care of this patient. We will continue to follow. please call with questions PDMP PDMP Reviewed: Not Reviewed Attestations 2 Medical Necessity Statement*: Care expected to cross 2 midnights. Coding Level of Care Code Acute Code for [facility] Diagnoses Shock R57.9 Acute kidney injury N17.9 Hypoxia R09.02 Influenza A J10.1 COPD (chronic obstructive pulmonary disease) J44.9 Hypertrophic cardiomyopathy I42.2 CAD (coronary artery disease) I25.10
[2024-12-25] MEDS: meropenem 1,000 mg SDV 1000 MG IVP ×2 (08:58→20:24)
[2024-12-25] MEDS: metoprolol tartrate 25 mg Tablet PO ×2 (09:00→20:24)
[2024-12-25] MEDS: atorvastatin 40 mg Tablet 80 MG PO (09:00)
[2024-12-25] MEDS: azithromycin 250 mg Tablet 500 MG PO (09:00)
[2024-12-25] MEDS: aspirin 81 mg EC Tablet PO (09:00)
[2024-12-25] MEDS: water for injection-sterile 20 ML 1000 ML (09:01)
[2024-12-25] MEDS: docusate sodium 100 mg Capsule PO ×2 (09:01→17:11)
[2024-12-25] MEDS: amiodarone 150 MG/100 ML PREMIX 400 MG IV (09:06)
[2024-12-25] MEDS: baclofen 10 mg Tablet PO ×3 (10:59→20:24)
[2024-12-25 11:12] LABS: Partial Thromboplastin Time 79.3 SECONDS (23.9-36.7)
--- NOTE | 2024-12-25 15:17 | PC.NURSE ---
report called and transferred to [facility] at this time
--- NOTE | 2024-12-25 15:21 | P.PN_ITS ---
Subjective 2 Subjective: No acute events overnight. Patient denies any nausea, vomiting, headache. On room air currently saturating more than 92%. Occasionally requiring up to 1 L of oxygen supplementation. Could not sleep last night though patient states he usually does not sleep at home as well. Occasionally complaining of shortness of breath. Vitals/I&O/Wt Last Vital Signs Temp 98.6 F 12/25/24 08:00 Pulse 89 12/25/24 13:34 Resp 18 12/25/24 13:18 BP 121/90 12/25/24 12:30 Pulse Ox 95 12/25/24 13:18 O2 Del Method Room Air 12/25/24 13:18 O2 Flow Rate 3 12/24/24 08:52 12/25/24 12/25/24 12/25/24 06:59 14:59 22:59 Intake Total 1123.566 / 2728.216 2066.533 / 2066.533 Output Total 600 / 1350 Balance 523.566 / 3962.087 4405.533 / 2066.533 Weight last 48 hrs Weight 91.807 kg Weight 91.807 kg Weight 92.306 kg Weight 92.306 kg Physical Exam 2 Narrative: General: No acute distress, AO x3, nasal cannula, sick appearing, HEENT: PERRLA, pupils bilaterally equal and reactive Chest: Bronchial breath sounds all over lung pack occasional rhonchi diffusely present all over lung pack CVS: S1-S2 regular, no murmurs, tachycardia, no gallops, no rubs Abdomen: Soft, nontender, no organomegaly, bowel sounds present Neuro: No focal deficits, no facial deformity, AO x3, power 5/5 in all limbs Urinary Catheter Management: Coude: Cath Placed During This Visit: yes Reason for Continuing Indwelling Catheter: Accurate Measurement of Urinary Output in Critically Ill Patients Urinary Catheter Date of Insertion: 12/23/24 Urinary Catheter Time of Insertion: 18:33 Data 12/25/24 02:00 12/25/24 02:00 Micro: Microbiology 12/23/24 20:49 Blood Culture - Preliminary Blood NEGATIVE TO DATE 12/23/24 20:47 Blood Culture - Preliminary Blood NEGATIVE TO DATE 12/24/24 14:12 Gram Stain - Final Sputum - Expectorated Sputum A&P Assessment and plan (1) Shock: Concerns for cardiogenic shock. Shock resolved. Levophed weaned off. Maintain mean artery pressure of 65. Follow-up blood cultures,sputum culture, MRSA swab negative. DC IV fluids. Continue with IV meropenem. Azithromycin for 3-day course. Vancomycin discontinued as MRSA swab negative. (2) Non-ST elevation [place] (NSTEMI): Complaining of mild chest pressure. Baseline troponin more than 200. Trending down. Echocardiogram concerning for severe LVH with EF of 50 to 55% and left atrial dilatation. Patient gives history of HOCM post myomectomy in 2014. Continue with heparin drip for now. He does have history of CAD post PCI in the past. N.p.o. after midnight. Lexiscan stress test in AM. Appreciate cardiology recommendations. Continue with aspirin 81 mg daily, atorvastatin 20 mg oral daily. Appreciate A1c, lipid panel. (3) Acute kidney injury: Baseline creatinine normal last in October 2023. Creatinine trending down. Down to 1.3. Could be in setting of shock along with home ARB, spironolactone. Patient has a history of phimosis. Strict input output charting, daily weights. Yañez catheterization. DC IV fluids. Monitor renal functions daily for now. Hyperkalemia resolved today. (4) Hypoxia: Most likely in setting of COPD exacerbation in setting of influenza. Oxygen supplementation with saturation of 88%. Cannot rule out CHF though patient clinically seems dehydrated for now. Watch for fluid overload. Appreciate CT chest done on 12/23. Concerning for mild right lower lobe pneumonic patch along with chronic emphysema. Continue with antibiotic as above. Follow-up sputum culture. De-escalate antibiotics as per sputum culture results. (5) Influenza A: Supportive care. Start on Tamiflu 75 mg oral daily. Incentive spirometry, flutter valve. (6) COPD (chronic obstructive pulmonary disease): Wean Solu-Medrol 40 mg every 12 hours. Pulmicort twice daily, ipratropium, Xopenex every 6 hours. (7) Hx of CABG: Plan History of HOCM: Post myomectomy. Appreciate cardiology recommendations. Patient is off Levophed. Did not get metoprolol yesterday. Heart rate trending up today. Discussed in detail with cardiology. Start on metoprolol 25 mg twice daily. Start on amiodarone drip as per protocol. Will uptitrate metoprolol depending on blood pressures and heart rate within next 24 hours. CODE STATUS: Discussed in detail with the patient. and daughter will be the DPOA. Full code. Cardiac diet Protonix OPD prophylaxis Heparin drip will be sufficient for DVT prophylaxis Transfer to [facility]. PDMP PDMP Reviewed: Not Reviewed Attestations 2 Medical Necessity Statement*: Requires further hospitalization for management of hypoxic respiratory failure, cardiogenic shock in setting of right lower lobe pneumonia, influenza A, non-ST elevation NH, acute kidney injury in a patient with history of HOCM, CAD post PCI Critical Care Time: The high probability of a clinically significant, sudden or life threatening deterioration of the patient's [cardiac, pulmonary, renal] system(s) required my full and direct attention, intervention and personal management. The critical care time is as shown. This time is in addition to time spent performing any reported procedures but includes the following: [x] Data and vital sign review and interpretation [x] Patient assessment, examination and intervention [x] Documentation [x] Medication orders and management Critical Care Time (min): 90 Diagnoses Shock R57.9 Non-ST elevation NH (NSTEMI) I21.4 Acute kidney injury N17.9 Hypoxia R09.02 Influenza A J10.1 COPD (chronic obstructive pulmonary disease) J44.9 Hx of CABG Z95.1
[2024-12-25 16:38] LABS: Partial Thromboplastin Time 54.8 SECONDS (23.9-36.7)
[2024-12-25] MEDS: heparin 5,000 unit/mL INJ 1 mL IVP (17:10)
[2024-12-25 23:40] LABS: Partial Thromboplastin Time 76.2 SECONDS (23.9-36.7)
[2024-12-26] VITALS (12 sets, daily range): BP systolic 110–162; BP diastolic 74–96; PULSE 70–93; RESP 17–28; TEMP 36.5–36.9; O2SAT 92–100
[2024-12-26] MEDS: heparin drip 25,000 UNIT/500 ML PREMIX 15 UNIT IV (03:20)
--- NOTE | 2024-12-26 03:44 | PC.NURSE ---
Patient refusing to have cardiac stress this am. Will inform nuc med and MD of patient's decision.
--- NOTE | 2024-12-26 05:54 | PC.NURSE ---
Patient becoming more anxious as night progresses along with increased confusion. Patient has refused to have his cardiac stress test performed. Informed nuc med.
[2024-12-26 06:57] LABS: Basophils % 0.1 %; Eosinophils % 0.2 %; Hematocrit 45.7 % (37-53); Lymphocytes # 0.6 10^3/uL (0.8-4.8); Lymphocytes % 4.7 %; Mean Corpuscular HGB Conc 32.4 g/dL (30-55); Mean Corpuscular Volume 92.7 fl (82-101); Mean Platelet Volume 10.5 fL (7.4-10.4); Monocytes # 0.6 10^3/uL (0.2-0.9); Monocytes % 4.4 %; Neutrophils % 90.2 %; Nucleated Red Blood Cells % 0 %; Platelet Count 143 10^3/cmm (157-399); Red Blood Count 4.93 10^6/uL (3.85-5.65); Red Cell Distribution Width 13.9 % (12.1-15.1); White Blood Count 12.64 10^3/uL (3.29-11.43)
[2024-12-26 07:15] LABS: Alanine Aminotransferase 16 U/L (0-41); Albumin Level 3.6 g/dL (3.5-5.2); Alkaline Phosphatase 95 U/L (40-130); Anion Gap 15.2 (5-19); Aspartate Amino Transferase 21 U/L (0-40); Blood Urea Nitrogen 30 mg/dL (8-23); Calcium 9.4 mg/dL (8.5-10.5); Carbon Dioxide 25 mmol/L (22-29); Chloride 102 mmol/L (98-107); Creatinine Clr Calc Pharmacy 57.7826; Globulin 3.5 g/dL (1.3-4.6); Glucose 130 mg/dL (65-115); Magnesium 1.9 mg/dL (1.7-2.3); Osmolality Calculated 294 mOsm/kg (285-295); Phosphorus 2.5 mg/dL (2.5-4.5); Potassium 4.2 mmol/L (3.5-5.1); Sodium 138 mmol/L (136-145); Total Bilirubin 0.6 mg/dL (0.15-1.2); Total Protein 7.1 g/dL (6.6-8.7)
[2024-12-26 07:22] LABS: Partial Thromboplastin Time 58.9 SECONDS (23.9-36.7)
[2024-12-26] MEDS: ipratropium 0.5 mg/2.5 mL Neb INHALATION ×3 (07:26→21:05)
[2024-12-26] MEDS: budesonide 0.5 mg/2 mL Neb INHALATION ×2 (07:26→21:05)
[2024-12-26] MEDS: FUROsemide 10 mg/mL SDV 2mL 20 MG IVP (08:59)
[2024-12-26] MEDS: azithromycin 250 mg Tablet 500 MG PO (09:01)
[2024-12-26] MEDS: aspirin 81 mg EC Tablet PO (09:01)
[2024-12-26] MEDS: docusate sodium 100 mg Capsule PO ×2 (09:01→17:36)
[2024-12-26] MEDS: atorvastatin 40 mg Tablet 80 MG PO (09:02)
[2024-12-26] MEDS: baclofen 10 mg Tablet PO ×2 (09:02→17:36)
[2024-12-26] MEDS: metoprolol tartrate 25 mg Tablet 75 MG PO ×2 (09:03→19:44)
[2024-12-26] MEDS: methylPREDNISolone sod succ 125 mg/2 mL INJ 40 MG IVP (09:03)
--- NOTE | 2024-12-26 09:34 | PC.CHAP ---
Pastoral Care Encounter/Spiritual Assessment Type of Contact [] Declined cad programmer visit [] Patient/Family/Request visit [] Outpatient visit [] Follow-up visit [] Physician referral [] Code/Alert [x] Routine visit [] Staff referral [] Actively dying [] Patient sleeping [] Family support [] [] Out of room [] Palliative care [] [] Receiving care in room [] Pre-surgical visit [] Trauma [] Long length of stay [] ICU visit [] Other: Relational/Emotional Strength [] Patient feels connected with others/family/visitors/staff [] Distress [] Loneliness/isolation [] Abandonment Spirituality of Patient [] Person of Dang [] Attends Taoist of their Dang [] Believes in Prayer [] Reads Bible or Roman Catholic materials [] There are Spiritual issues to be addressed Teacher Dramatics Interventions [] Prayer [] Active listening [] Non-anxious presence [] Spiritual/emotional support [] Crisis/trauma care [] Spiritual counseling [] Bereavement support [] Provided bereavement packet [] Provided Bible/devotional materials [] Provided toy/stuffed animal, coloring book to patient or family member [] Provided Communion [] Anointing/[place] [] Salvation [] Completed spiritual assessment [] Other: Impact on Illness or Injury [] Angry [] Fearful [] Anxious [] Often cries [] Exhaustion [] Unable to work [] Unable to attend jehovah's witness [] Unable to walk/stand [] Unable to read [] Unable to drive [] Unable to eat/drink [] Unable to sleep [] Unable to be with family [] Patient intubated [] Other: Summary precaution Time spent with patient
--- NOTE | 2024-12-26 10:17 | P.PN_ITS ---
<Statement entered by Toñito Brown M.D - 12/27/24 21:01> Patient was evaluated and cared for in conjunction with an advanced practice practitioner. I personally examined the patient and reviewed the chart and all pertinent data including imaging, telemetry, and laboratory results. I discussed the patient in detail with the advanced practice practitioner. Please see their note for complete progress note, results and agreed upon plan of care for the patient. GENERAL: Patient is alert and oriented HEART: Regular S1 and S2 LUNGS: Clear to auscultation bilaterally EXTREMITIES: Lower extremities with no edema Subjective 2 Subjective: Patient doing well this morning. He denies any chest pain or shortness of breath. At this time, he states he does not want to proceed with a stress test. His heart rate is controlled but still in afib. He has chronic hx of afib. He has been on an amio drip for 24 hours. Vitals/I&O/Wt Last Vital Signs Temp 98.4 F 12/26/24 03:53 Pulse 93 12/26/24 08:00 Resp 28 H 12/26/24 08:00 BP 151/93 12/26/24 08:00 Pulse Ox 95 12/26/24 08:00 O2 Del Method Nasal Cannula 12/26/24 08:00 O2 Flow Rate 3 12/26/24 08:00 12/25/24 12/26/24 12/26/24 22:59 06:59 14:59 Intake Total 401 / 2467.533 371.334 / 2838.867 84 / 84 Output Total 300 / 300 Balance 401 / 2467.533 71.334 / 2538.867 84 / 84 Weight last 48 hrs Weight 202 lb 6.4 oz Weight 202 lb 6.4 oz Physical Exam 2 Narrative: General: No apparent distress, healthy appearing, well nourished HENMT: normoceophalic Muskuloskeletal: Full ROM Lymphatic: no lymphedema noted Respiratory: Normal respiratory effort, clear to auscultation bilaterally throughout all lung pack, no use of accessory muscles, using O2 Cardio: No JVD, regular rate, irregulary irregular rhythm, S1 S2 normal, no murmurs, peripheral pulses 2+ radial palpated bilaterally Extremities: Full ROM, normal, normal capillary refill, no cyanosis or edema Neuro: Alert and oriented x4, no focal motor deficits Psych: Affect normal, denies suicidal ideation, mental status grossly normal Skin: No rashes or lesions noted, no wounds Urinary Catheter Management: Coude: Cath Placed During This Visit: yes Reason for Continuing Indwelling Catheter: Accurate Measurement of Urinary Output in Critically Ill Patients Urinary Catheter Date of Insertion: 12/23/24 Urinary Catheter Time of Insertion: 18:33 Data 12/26/24 06:26 12/26/24 06:26 Micro: Microbiology 12/24/24 14:12 Gram Stain - Final Sputum - Expectorated Sputum Sputum Culture - Preliminary A&P Assessment and plan (1) Shock: (2) Acute kidney injury: (3) Hypoxia: (4) Influenza A: (5) COPD (chronic obstructive pulmonary disease): (6) Hypertrophic cardiomyopathy: (7) CAD (coronary artery disease): Plan Patient's heart rate is controlled. Has been on amiodarone drip for 24 hours. Will start amiodarone 400 BID PO, then recommend in 1 week decreasing to 200 BID, then after another week 200 daily. Continue metoprolol. At this time, he does not want to proceed with the stress test. He would like to continue medical managment. PDMP PDMP Reviewed: Not Reviewed Attestations 2 Medical Necessity Statement*: Deferred to primary. Coding Level of Care Code Acute Code for [facility] Diagnoses Shock R57.9 Acute kidney injury N17.9 Hypoxia R09.02 Influenza A J10.1 COPD (chronic obstructive pulmonary disease) J44.9 Hypertrophic cardiomyopathy I42.2 CAD (coronary artery disease) I25.10
[2024-12-26] MEDS: pantoprazole 40 mg SDV IVP ×2 (10:29→19:45)
[2024-12-26] MEDS: meropenem 1,000 mg SDV 1000 MG IVP ×2 (10:30→19:45)
--- NOTE | 2024-12-26 10:56 | P.PN_ITS ---
Subjective 2 Subjective: No acute events overnight. Patient denies any nausea vomiting, headache. On examination he was down down to 3 L of oxygen supplementation, saturating more than 95%. Patient complains of feeling anxious. Does not want to go ahead with stress test as he is not getting good feeling about it. Overnight has remained on amiodarone drip and heart rate has remained less than 90 bpm. Vitals/I&O/Wt Last Vital Signs Temp 98.4 F 12/26/24 03:53 Pulse 93 12/26/24 08:00 Resp 28 H 12/26/24 08:00 BP 151/93 12/26/24 08:00 Pulse Ox 95 12/26/24 08:00 O2 Del Method Nasal Cannula 12/26/24 08:00 O2 Flow Rate 3 12/26/24 08:00 12/25/24 12/26/24 12/26/24 22:59 06:59 14:59 Intake Total 401 / 2467.533 371.334 / 2838.867 84 / 84 Output Total 300 / 300 Balance 401 / 2467.533 71.334 / 2538.867 84 / 84 Weight last 48 hrs Weight 91.807 kg Weight 91.807 kg Physical Exam 2 Narrative: General: No acute distress, AO x3, nasal cannula, sick appearing, HEENT: PERRLA, pupils bilaterally equal and reactive Chest: Bronchial breath sounds all over lung pack occasional rhonchi diffusely present all over lung pack CVS: S1-S2 regular, no murmurs, tachycardia, no gallops, no rubs Abdomen: Soft, nontender, no organomegaly, bowel sounds present Neuro: No focal deficits, no facial deformity, AO x3, power 5/5 in all limbs Urinary Catheter Management: Coude: Cath Placed During This Visit: yes Reason for Continuing Indwelling Catheter: Accurate Measurement of Urinary Output in Critically Ill Patients Urinary Catheter Date of Insertion: 12/23/24 Urinary Catheter Time of Insertion: 18:33 Data 12/26/24 06:26 12/26/24 06:26 Micro: Microbiology 12/24/24 14:12 Gram Stain - Final Sputum - Expectorated Sputum Sputum Culture - Preliminary A&P Assessment and plan (1) Shock: Concerns for cardiogenic shock. Shock resolved. Levophed weaned off. Maintain mean artery pressure of 65. Follow-up blood cultures,sputum culture, MRSA swab negative. DC IV fluids. Continue with IV meropenem. Azithromycin for 3-day course. Vancomycin discontinued as MRSA swab negative. (2) Non-ST elevation [place] (NSTEMI): Complaining of mild chest pressure. Baseline troponin more than 200. Trending down. Echocardiogram concerning for severe LVH with EF of 50 to 55% and left atrial dilatation. Patient gives history of HOCM post myomectomy in 2014. Continue with heparin drip for now. He does have history of CAD post PCI in the past. N.p.o. after midnight. Lexiscan stress test in AM. Appreciate cardiology recommendations. Continue with aspirin 81 mg daily, atorvastatin 20 mg oral daily. Appreciate A1c, lipid panel. (3) Acute kidney injury: Baseline creatinine normal last in October 2023. Creatinine trending down. Down to 1.3. Could be in setting of shock along with home ARB, spironolactone. Patient has a history of phimosis. Strict input output charting, daily weights. Yañez catheterization. DC IV fluids. Monitor renal functions daily for now. Hyperkalemia resolved today. (4) Hypoxia: Most likely in setting of COPD exacerbation in setting of influenza. Oxygen supplementation with saturation of 88%. Cannot rule out CHF though patient clinically seems dehydrated for now. Watch for fluid overload. Appreciate CT chest done on 12/23. Concerning for mild right lower lobe pneumonic patch along with chronic emphysema. Continue with antibiotic as above. Follow-up sputum culture. De-escalate antibiotics as per sputum culture results. (5) Influenza A: Supportive care. Start on Tamiflu 75 mg oral daily. Incentive spirometry, flutter valve. (6) COPD (chronic obstructive pulmonary disease): Wean Solu-Medrol 40 mg every 12 hours. Pulmicort twice daily, ipratropium, Xopenex every 6 hours. (7) Hx of CABG: Plan History of HOCM: Post myomectomy. Appreciate cardiology recommendations. Patient is off Levophed. Did not get metoprolol yesterday. Heart rate trending up today. Discussed in detail with cardiology. Start on metoprolol 25 mg twice daily. Start on amiodarone drip as per protocol. Will uptitrate metoprolol depending on blood pressures and heart rate within next 24 hours. CODE STATUS: Discussed in detail with the patient. and daughter will be the DPOA. Full code. Cardiac diet Protonix OPD prophylaxis Heparin drip will be sufficient for DVT prophylaxis Plan for the day: Goal blood pressure less than 140/90 mmHg. Target heart rate below 90. Increase metoprolol to 75 mg twice daily. Switch from amiodarone drip to 400 mg twice daily. Will plan to switch to 1 mg twice daily in 7 days. Appreciate cardiology recommendations. Patient does not want to go ahead with stress test. Discussed in detail with the patient regarding needs to rule out ACS given his baseline troponin of 200 on admission. Patient for now would want to talk to his outpatient almond pan finisher before going any further for ACS workup. Switch from heparin drip to home dose of Eliquis. Continue with baby aspirin 81 mg daily, statin. Patient remains chest pain-free. Oxygen supplementation keeping saturation over 88%. 20 mg of IV Lasix one-time. Patient's creatinine has continued to improve down to 1.2 on oral intake. Continue to hold off on IV fluids. Physical therapy. Out of bed to chair. Wean Solu-Medrol to 40 mg IV daily. PDMP PDMP Reviewed: Not Reviewed Attestations 2 Medical Necessity Statement*: Requires further hospitalization for management of hypoxic respiratory failure in setting of influenza, COPD exacerbation, concerns for aspiration pneumonia, non-ST elevation W[place] in a patient with history of baseline HOCM Diagnoses Shock R57.9 Non-ST elevation [place] (NSTEMI) I21.4 Acute kidney injury N17.9 Hypoxia R09.02 Influenza A J10.1 COPD (chronic obstructive pulmonary disease) J44.9 Hx of CABG Z95.1
--- NOTE | 2024-12-26 12:28 | PC.SOCIAL ---
IMM Updated Updated pt on IMM. No questions voiced. Provided pt a copy. Initialed, dated, & timed a copy & placed in chart.
[2024-12-26] MEDS: apixaban 5 mg Tablet PO (17:36)
[2024-12-26] MEDS: amiodarone 200 mg Tablet 400 MG PO (17:36)
[2024-12-26] MEDS: lactulose oral liq 20 gm/30 mL UDC 10 GM PO (18:12)
[2024-12-26] MEDS: trazodone 50 mg Tablet PO (19:45)
[2024-12-27] VITALS (10 sets, daily range): BP systolic 99–158; BP diastolic 56–90; PULSE 73–94; RESP 18–27; TEMP 36.3–36.7; O2SAT 90–99
--- NOTE | 2024-12-27 02:02 | PC.NURSE ---
This RN heard some yelling from down the [place]. Walked into patient's room and found him on the floor. Patient denies injury. He does state, I thought I was at home. Patient had been in the recliner with legs elevated. Chair was still in the position of legs raised. Appears patient crawled out of the recliner. Only injury observed was mild abrasion to left knee without bleeding or bruising observed at this time. Informed Dr Perry.
[2024-12-27 03:41] LABS: Basophils % 0.2 %; Hematocrit 45.5 % (37-53); Lymphocytes # 0.7 10^3/uL (0.8-4.8); Lymphocytes % 5.9 %; Mean Corpuscular HGB Conc 32.1 g/dL (30-55); Mean Corpuscular Hemoglobin 30.5 pg (27-33); Mean Platelet Volume 10.5 fL (7.4-10.4); Monocytes # 0.5 10^3/uL (0.2-0.9); Monocytes % 4.5 %; Neutrophils # 10.56 10^3/uL (1.8-7.7); Neutrophils % 89.1 %; Nucleated Red Blood Cells % 0 %; Platelet Count 135 10^3/cmm (157-399); Red Blood Count 4.79 10^6/uL (3.85-5.65); White Blood Count 11.85 10^3/uL (3.29-11.43)
[2024-12-27 03:54] LABS: Alanine Aminotransferase 13 U/L (0-41); Albumin Level 3.4 g/dL (3.5-5.2); Alkaline Phosphatase 74 U/L (40-130); Anion Gap 14.9 (5-19); Aspartate Amino Transferase 16 U/L (0-40); Blood Urea Nitrogen 32 mg/dL (8-23); Calcium 8.9 mg/dL (8.5-10.5); Carbon Dioxide 25 mmol/L (22-29); Chloride 101 mmol/L (98-107); Creatinine Clr Calc Pharmacy 57.7826; Globulin 3.2 g/dL (1.3-4.6); Glucose 126 mg/dL (65-115); Osmolality Calculated 292 mOsm/kg (285-295); Potassium 3.9 mmol/L (3.5-5.1); Sodium 137 mmol/L (136-145); Total Bilirubin 0.5 mg/dL (0.15-1.2); Total Protein 6.6 g/dL (6.6-8.7)
--- NOTE | 2024-12-27 08:12 | XRR_ITS ---
PROCEDURE INFORMATION: Exam: XR Chest Exam date and time: 12/27/2024 8:24 AM Age: 79 years old Clinical indication: Shortness of breath; Prior surgery; Surgery date: 6+ months; Surgery type: Cabg; Additional info: Worsening shortness of breath TECHNIQUE: Imaging protocol: Radiologic exam of the chest. Views: 1 view. Total images: 1 COMPARISON[place] [id number] 12/23/2024 6:49 PM FINDINGS: Lungs: Nonspecific bilateral predominant peripheral opacities, atelectasis, edema and/or pneumonia. Pleural spaces: Unremarkable. No pleural effusion. No pneumothorax. Heart/Mediastinum: Prior coronary artery bypass grafting. Heart size is stable when compared to the prior exam. Low lung volumes are present, accentuating cardiac size and pulmonary markings. Vasculature: Moderate atherosclerotic disease burden is evident. Bones/joints: Changes of sternotomy are noted. Gastrointestinal tract: Nonspecific distended bowel loops noted in visualized abdomen. XR/XR chest 1V portable [id number] IMPRESSION: 1. Low lung volumes are present, accentuating cardiac size and pulmonary markings. 2. Nonspecific bilateral predominant peripheral opacities, atelectasis, edema and/or pneumonia. 3. Nonspecific distended bowel loops noted in visualized abdomen.
[2024-12-27] MEDS: budesonide 0.5 mg/2 mL Neb INHALATION (08:15)
[2024-12-27] MEDS: ipratropium 0.5 mg/2.5 mL Neb INHALATION ×2 (08:15→15:06)
[2024-12-27] MEDS: baclofen 10 mg Tablet PO ×2 (08:51→18:16)
[2024-12-27] MEDS: metoprolol tartrate 25 mg Tablet 75 MG PO ×2 (08:51→21:10)
[2024-12-27] MEDS: amiodarone 200 mg Tablet 400 MG PO ×2 (08:51→18:21)
[2024-12-27] MEDS: predniSONE 20 mg Tablet 40 MG PO (08:52)
[2024-12-27] MEDS: apixaban 5 mg Tablet PO ×2 (08:52→18:16)
[2024-12-27] MEDS: docusate sodium 100 mg Capsule PO ×2 (08:52→18:16)
[2024-12-27] MEDS: atorvastatin 40 mg Tablet 80 MG PO (08:52)
[2024-12-27] MEDS: aspirin 81 mg EC Tablet PO (08:52)
[2024-12-27] MEDS: pantoprazole 40 mg SDV IVP (09:03)
[2024-12-27] MEDS: meropenem 1,000 mg SDV 1000 MG IVP ×2 (09:03→21:10)
--- NOTE | 2024-12-27 10:37 | P.PN_ITS ---
<Statement entered by Toñito Brown M.D - 12/27/24 23:18> Patient was cared for in conjunction with an advanced practice practitioner. I personally reviewed the chart and all pertinent data including imaging, telemetry, and laboratory results. I discussed the patient in detail with the advanced practice practitioner. Please see their note for complete progress note, results and agreed upon plan of care for the patient. Subjective 2 Subjective: Patient was seen this morning. He states he is a little more short of breath than usual. He reported some orthopnea last night. Oxygen saturation 91% on nasal cannula. No acute distress noted but he does have slight crackles bilateral lower lobes. Vitals/I&O/Wt Last Vital Signs Temp 98.1 F 12/27/24 07:18 Pulse 85 12/27/24 08:15 Resp 20 H 12/27/24 08:15 BP 102/74 12/27/24 07:18 Pulse Ox 99 12/27/24 08:15 O2 Del Method Nasal Cannula 12/27/24 08:15 O2 Flow Rate 3 12/27/24 08:15 12/26/24 12/27/24 12/27/24 22:59 06:59 14:59 Intake Total 645.277 / 969.277 100 / 1069.277 240 / 240 Output Total 60 / 1310 450 / 1760 Balance 585.277 / -340.723 -350 / -690.723 240 / 240 Weight last 48 hrs Weight 215 lb Physical Exam 2 Narrative: General: No apparent distress, healthy appearing, well nourished HENMT: normoceophalic Muskuloskeletal: Full ROM Lymphatic: no lymphedema noted Respiratory: Normal respiratory effort, fine crackles bilateral lower lobes, no use of accessory muscles, using O2 Cardio: No JVD, regular rate, irregulary irregular rhythm, S1 S2 normal, no murmurs, peripheral pulses 2+ radial palpated bilaterally Extremities: Full ROM, normal, normal capillary refill, trace edema bilaterally Neuro: Alert and oriented x4, no focal motor deficits Psych: Affect normal, denies suicidal ideation, mental status grossly normal Skin: No rashes or lesions noted, no wounds Urinary Catheter Management: Coude: Cath Placed During This Visit: yes, but has since been removed by the nurse Reason for Continuing Indwelling Catheter: Decision to DC Catheter Urinary Catheter Date of Insertion: 12/23/24 Urinary Catheter Time of Insertion: 18:33 Date Urinary Catheter Removed: 12/26/24 Time Urinary Catheter Discontinued: 16:47 Data 12/27/24 03:06 12/27/24 03:06 Micro: Microbiology 12/24/24 14:12 Gram Stain - Final Sputum - Expectorated Sputum Sputum Culture - Final A&P Assessment and plan (1) Shock: (2) Acute kidney injury: (3) Hypoxia: (4) Influenza A: (5) COPD (chronic obstructive pulmonary disease): (6) Hypertrophic cardiomyopathy: (7) CAD (coronary artery disease): Plan At this time patient still does not want to proceed with stress test. Agree with Lasix 20 IV push twice daily as patient had orthopnea last night as well as has some edema with x-ray showing possible edema. Will have to monitor for hypotension due to left bentricular hypertrophy and acute kidney injury closely. At this time, creatinine stable at 1.2. PDMP PDMP Reviewed: Not Reviewed Attestations 2 Medical Necessity Statement*: Deferred to primary. Coding Level of Care Code Acute Code for [facility] Fwd Diagnoses Shock R57.9 Acute kidney injury N17.9 Hypoxia R09.02 Influenza A J10.1 COPD (chronic obstructive pulmonary disease) J44.9 Hypertrophic cardiomyopathy I42.2 CAD (coronary artery disease) I25.10
--- NOTE | 2024-12-27 12:08 | P.PN_ITS ---
Subjective 2 Subjective: Patient reports he feels terrible. He endorses shortness of breath and increased work of breathing. He states that his respiratory status is much worse than yesterday. Endorses lower extremity edema. Reports generalized malaise and fatigue. Denies fevers or chills. Daughter is bedside later in the day. Discussed plan of care. She notes his progressive decline over the past several months. Spouse as well as visit later today. Medications: Reviewed: Yes Vitals/I&O/Wt Last Vital Signs Temp 98.1 F 12/27/24 11:36 Pulse 82 12/27/24 11:36 Resp 20 H 12/27/24 11:36 BP 101/59 12/27/24 11:36 Pulse Ox 91 12/27/24 11:36 O2 Del Method Nasal Cannula 12/27/24 11:36 O2 Flow Rate 3 12/27/24 08:15 12/26/24 12/27/24 12/27/24 22:59 06:59 14:59 Intake Total 645.277 / 969.277 100 / 1069.277 240 / 240 Output Total 60 / 1310 450 / 1760 Balance 585.277 / -340.723 -350 / -690.723 240 / 240 Weight last 48 hrs Weight 97.522 kg Physical Exam 2 Narrative: General: Patient is awake. Ill-appearing. Head: Normocephalic. Atraumatic. EOM intact. Neck: Elevated JVD. Cardiovascular: RRR. No gallops. No murmurs. 1-2+ pitting edema bilateral lower extremities. Lungs: Pertinent crackles and rales. No wheezing. Conversational dyspnea. Tachypneic. Increased work of breathing when speaking. Skin: No jaundice. No rashes. Abdomen: Normal bowel sounds, abdomen soft and nontender. Genito Urinary: Genital exam not performed since complaints not related. Rectal: Rectal exam not performed since no symptoms indicated blood loss. Extremities: No cyanosis or clubbing. Musculoskeletal: No swollen or erythematous joints. Neurological: Moves all 4 extremities. No myoclonus. Urinary Catheter Management: Coude: Cath Placed During This Visit: yes, but has since been removed by the nurse Reason for Continuing Indwelling Catheter: Decision to DC Catheter Urinary Catheter Date of Insertion: 12/23/24 Urinary Catheter Time of Insertion: 18:33 Date Urinary Catheter Removed: 12/26/24 Time Urinary Catheter Discontinued: 16:47 Data 12/27/24 03:06 12/27/24 03:06 Micro: Microbiology 12/24/24 14:12 Gram Stain - Final Sputum - Expectorated Sputum Sputum Culture - Final A&P Assessment and plan (1) CHF (congestive heart failure): Acute on chronic heart failure with preserved ejection fraction exacerbation Patient throughout 4 L volume follow-up since admission Pulmonary edema noted on chest x-ray Hemodynamics significantly limit diuresis options Start Lasix 20 mg IV twice daily AC Strict I's and O's Daily weights (2) Hypoxia: Patient requiring supplemental oxygen Encourage pulmonary toilet Treating underlying CHF, COPD, pneumonia Patient in mild respiratory distress, proceed with chest x-ray to evaluate lung parenchyma Encourage ambulation Supportive care (3) Influenza A: Continue Tamiflu Droplet precautions (4) COPD (chronic obstructive pulmonary disease): COPD with acute exacerbation Rotate to oral prednisone Continue current breathing treatments (5) Weakness: Patient severely weak and debilitated Patient's clinical status is worse today as compared to yesterday Shock and YANET have resolved, he likely has some underlying CKD Continue therapy (6) CAD (coronary artery disease): Patient came in with elevated troponin, diagnosed with an NSTEMI Cardiology is following He is declining ischemic evaluation Continue aspirin Continue high intensity statin Continue beta-lillian (7) Pneumonia: Continue meropenem, consider narrowing antibiotics soon (8) Atrial fibrillation: Continue amiodarone Continue metoprolol (9) Hypertrophic cardiomyopathy: Echo reviewed Will follow-up with his outpatient motion picture operator after recovery Plan DVT prophylaxis: Apixaban PDMP PDMP Reviewed: Not Reviewed Attestations 2 Medical Necessity Statement*: Patient requires ongoing hospitalization for worsening respiratory status, heart failure exacerbation, IV antibiotics for pneumonia, IV diuresis, therapy, and supportive care. Coding Level of Care Code Acute Code for [facility] Diagnoses CHF (congestive heart failure) I50.9 Hypoxia R09.02 Influenza A J10.1 COPD (chronic obstructive pulmonary disease) J44.9 Weakness R53.1 CAD (coronary artery disease) I25.10 Pneumonia J18.9 Atrial fibrillation I48.91 Hypertrophic cardiomyopathy I42.2
[2024-12-27] MEDS: FUROsemide 10 mg/mL SDV 2mL 20 MG IVP ×2 (12:09→18:20)
[2024-12-27] MEDS: potassium chloride ER 20 mEq Tablet PO (12:10)
[2024-12-27 12:46] LABS: Bilirubin Urine Negative (Negative); Blood Urine 3+ (Negative); Glucose Urine UA Negative (Normal); Ketones Urine Negative (Negative); Leukocyte Esterase Urine 1+ (Negative); Nitrate Urine Negative (Negative); Protein Urine 2+ (Negative); Specific Gravity, Urine 1.022 (1.005-1.030); Urine Appearance Cloudy (CLEAR); pH Urine 5.5 (5-7)
[2024-12-27 12:55] LABS: UA Manual Slide Review YES; UA Slide Review UA Slide Review Perf; Urine Color Orange (Yellow)
[2024-12-27 12:59] LABS: Add Urine Culture? Yes; RBC Urine TOO NUMEROUS TO CNT /hpf (0-2); Squamous Epithelial Cell Urine 0-4 /hpf (0-5); WBC Urine 0-4 /hpf (0-5)
[2024-12-27] MEDS: levalbuterol 0.63 mg/3 mL Neb INHALATION (15:06)
[2024-12-27] MEDS: temazepam 15 mg Capsule PO (21:21)
[2024-12-28] VITALS (16 sets, daily range): BP systolic 96–123; BP diastolic 60–85; PULSE 63–96; RESP 16–25; TEMP 35.5–36.7; O2SAT 91–98
[2024-12-28] MEDS: levalbuterol 0.63 mg/3 mL Neb INHALATION ×3 (01:35→19:39)
[2024-12-28] MEDS: ipratropium 0.5 mg/2.5 mL Neb INHALATION ×3 (01:35→19:39)
[2024-12-28 05:21] LABS: Basophils % 0.1 %; Hematocrit 49.9 % (37-53); Lymphocytes # 0.8 10^3/uL (0.8-4.8); Lymphocytes % 7.8 %; Mean Corpuscular HGB Conc 30.9 g/dL (30-55); Mean Corpuscular Hemoglobin 29.8 pg (27-33); Mean Corpuscular Volume 96.7 fl (82-101); Mean Platelet Volume 10.9 fL (7.4-10.4); Monocytes # 0.4 10^3/uL (0.2-0.9); Monocytes % 4.2 %; Neutrophils # 8.55 10^3/uL (1.8-7.7); Neutrophils % 87.4 %; Nucleated Red Blood Cells % 0 %; Platelet Count 145 10^3/cmm (157-399); Red Blood Count 5.16 10^6/uL (3.85-5.65); Red Cell Distribution Width 13.8 % (12.1-15.1); White Blood Count 9.78 10^3/uL (3.29-11.43)
[2024-12-28] MEDS: FUROsemide 10 mg/mL SDV 2mL 20 MG IVP (06:02)
[2024-12-28 06:36] LABS: Albumin Level 3.4 g/dL (3.5-5.2); Anion Gap 12.7 (5-19); Blood Urea Nitrogen 41 mg/dL (8-23); Calcium 9.3 mg/dL (8.5-10.5); Carbon Dioxide 31 mmol/L (22-29); Chloride 99 mmol/L (98-107); Creatinine Clr Calc Pharmacy 47.5384; Glucose 120 mg/dL (65-115); Phosphorus 3.7 mg/dL (2.5-4.5); Potassium 4.7 mmol/L (3.5-5.1); Sodium 138 mmol/L (136-145)
[2024-12-28] MEDS: budesonide 0.5 mg/2 mL Neb INHALATION ×2 (07:37→20:05)
[2024-12-28] MEDS: meropenem 1,000 mg SDV 1000 MG IVP (07:47)
[2024-12-28] MEDS: predniSONE 20 mg Tablet 40 MG PO (07:48)
[2024-12-28] MEDS: potassium chloride ER 20 mEq Tablet PO (07:48)
[2024-12-28] MEDS: docusate sodium 100 mg Capsule PO ×2 (07:48→16:50)
[2024-12-28] MEDS: baclofen 10 mg Tablet PO ×2 (07:49→16:50)
[2024-12-28] MEDS: apixaban 5 mg Tablet PO ×2 (07:49→16:51)
[2024-12-28] MEDS: atorvastatin 40 mg Tablet 80 MG PO (07:49)
[2024-12-28] MEDS: amiodarone 200 mg Tablet 400 MG PO ×2 (07:49→16:51)
[2024-12-28] MEDS: aspirin 81 mg EC Tablet PO (07:50)
[2024-12-28] MEDS: metoprolol tartrate 25 mg Tablet 75 MG PO (07:53)
[2024-12-28 08:40] LABS: ABG PH Result 7.23 (7.35-7.45); Arterial Blood Gas Hematocrit 46.8 % (42-52); Base Excess ABG 2.2 mmol/L (-2.0-2.0); Blood Gas Operator Identificat AMH; Blood Gas Sample Site Brachial, right; Blood Gas Sample Type Arterial; Carboxyhemoglobin 1.2 %THgb (0.4-20.1); HCO3 ABG 32.6 mmol/L (22-26); HGB O2 Sat 91.8 % (95-100); Ionized Calcium Level - ABG 1.3 mmol/L (1.1-1.4); Oxygen Device NC; Oxygen Saturation ABG 93.9; PO2 FiO2 Ratio Arterial Blood 264; Potassium Level - ABG 4.4 mmol/L (3.5-5.0); Total Hemoglobin 15.3 g/dL (14-18)
[2024-12-28] MEDS: methylPREDNISolone sod succ 40 mg SDV IVP ×3 (10:28→20:11)
[2024-12-28] MEDS: albumin 12.5 GM/50 ML VIAL IV (10:28)
--- NOTE | 2024-12-28 11:22 | PM.PN ---
Subjective Subjective: Notified by staff this morning that patient's extremely lethargic. Blood gas obtained consistent with CO2 narcosis. Discussed with RT will initiate BiPAP treatment. Patient found to be in a stuporous state on exam. He does arouse but only briefly. Spouse is bedside and supportive. Discussed worsening pulmonary condition. Discussed plan of care. She notes that he is severely weak and she does have concerned about taking care of him at home. Discussed he is not medically ready to consider discharge at this time but his strength is likely to remain poor given ongoing prolonged hospitalization. She is unsure if he be willing to go to rehab prior to going home. She also notes that she will be able to care for him in this condition. Encouraged her to continue thinking about postacute options. Medications: Reviewed: Yes Vitals/I&O/Wt Last Vital Signs Temp 97.4 F L 12/28/24 08:00 Pulse 75 12/28/24 10:47 Resp 19 H 12/28/24 08:00 BP 106/60 12/28/24 08:00 Pulse Ox 98 12/28/24 10:47 O2 Del Method Nasal Cannula 12/28/24 08:00 O2 Flow Rate 2 12/28/24 07:37 FiO2 30 12/28/24 10:47 12/27/24 12/28/24 12/28/24 22:59 06:59 14:59 Intake Total 840 / 1080 480 / 1560 240 / 240 Output Total 250 / 450 100 / 100 Balance 590 / 630 480 / 1110 140 / 140 Weight last 48 hrs Weight 97.522 kg Weight 97.522 kg Physical Exam Narrative: General: Patient is in a stuporous state. Arouses but only briefly. Head: Normocephalic. Atraumatic. EOM intact. Neck: Elevated JVD. Cardiovascular: RRR. No gallops. No murmurs. 1+ pitting edema bilateral lower extremities, not significantly changed from yesterday's exam. Lungs: Pertinent crackles and rales. No wheezing. Conversational dyspnea. Tachypneic. Skin: No jaundice. No rashes. Abdomen: Normal bowel sounds, abdomen soft and nontender. Extremities: No cyanosis or clubbing. Musculoskeletal: No swollen or erythematous joints. Neurological: Moves all 4 extremities. No myoclonus. Urinary Catheter Management: Coude: Cath Placed During This Visit: yes, but has since been removed by the nurse Reason for Continuing Indwelling Catheter: Decision to DC Catheter Urinary Catheter Date of Insertion: 12/23/24 Urinary Catheter Time of Insertion: 18:33 Date Urinary Catheter Removed: 12/26/24 Time Urinary Catheter Discontinued: 16:47 Data 12/28/24 04:45 12/28/24 05:58 A&P Assessment and plan (1) CHF (congestive heart failure): Acute on chronic heart failure with preserved ejection fraction exacerbation Remains volume overloaded Azotemia noted, albumin 25 mg ordered Hemodynamics significantly limit diuresis options Continue Lasix 20 mg IV twice daily AC Strict I's and O's Daily weights (2) Hypoxia: Acute on chronic hypoxic respiratory failure Acute hypercapnic respiratory failure with CO2 narcosis Treating underlying CHF, COPD, pneumonia Start noninvasive mechanical ventilation Serial blood gases (3) Influenza A: Continue Tamiflu Droplet precautions (4) COPD (chronic obstructive pulmonary disease): COPD with acute exacerbation Patient not tolerating oral intake, rotate to Solu-Medrol Continue current breathing treatments (5) Weakness: Clinically, patient continues to worsen Continue therapy when medically ready (6) CAD (coronary artery disease): Patient came in with elevated troponin, diagnosed with an NSTEMI Cardiology is following He is declining ischemic evaluation Continue aspirin Continue high intensity statin Continue beta-lillian (7) Pneumonia: Continue meropenem, consider narrowing antibiotics soon (8) Atrial fibrillation: Continue amiodarone Continue metoprolol (9) Hypertrophic cardiomyopathy: Echo reviewed Will follow-up with his outpatient dry wall installations mechanic after recovery Plan DVT prophylaxis: Apixaban PDMP PDMP Reviewed: Not Reviewed Attestations Medical Necessity Statement*: Patient requires ongoing hospitalization for initiation noninvasive mechanical ventilation due to worsening respiratory status, IV antibiotics, IV steroids, IV diuresis and supportive care. Coding Level of Care Code Acute Code for [facility] Fwd Diagnoses CHF (congestive heart failure) I50.9 Hypoxia R09.02 Influenza A J10.1 COPD (chronic obstructive pulmonary disease) J44.9 Weakness R53.1 CAD (coronary artery disease) I25.10 Pneumonia J18.9 Atrial fibrillation I48.91 Hypertrophic cardiomyopathy I42.2
--- NOTE | 2024-12-28 11:44 | PC.NURSE ---
Axillary temp at noon VS check was 95.9. Pt care nurse, Halle, notified. Warm blankets placed on patient at this time
[2024-12-28 13:01] LABS: Blood Gas Sample Site Brachial, right; Blood Gas Sample Type Arterial; Carboxyhemoglobin 1.2 %THgb (0.4-20.1); Potassium Level - ABG 4.7 mmol/L (3.5-5.0)
[2024-12-28 13:02] LABS: ABG PH Result 7.27 (7.35-7.45); Ionized Calcium Level - ABG 1.3 mmol/L (1.1-1.4)
[2024-12-28 13:04] LABS: Alveolar-Arterial Oxygen Gradi 4.4 mmHg (5-10); Arterial Blood Gas Hematocrit 44.2 % (42-52); Base Excess ABG 2.5 mmol/L (-2.0-2.0); Blood Gas Operator Identificat AMH; HCO3 ABG 31.5 mmol/L (22-26); HGB O2 Sat 95.5 % (95-100); Methemoglobin 0.2 % (0.4-1.5); Oxygen Device BIPAP; Oxygen Saturation ABG 96.9; PO2 ABG 95.8 mmHg (80.0-100.0); PO2 FiO2 Ratio Arterial Blood 319; Total Hemoglobin 14.4 g/dL (14-18)
--- NOTE | 2024-12-28 13:14 | PC.SOCIAL ---
IMM Update pg 2 of IMM Updated and reviewed w/ patient. Copy provided and copy dated, initialed and placed in chart.
--- NOTE | 2024-12-28 16:29 | PC.NURSE ---
weaving instructor observed Adalberto, student nurse, place a urinary fortune catheter. Pt tolerated well.
--- NOTE | 2024-12-28 18:06 | PC.NURSE ---
SHIFT SUMMARY: When RN comes onto shift, lethargy and inability to stand noted. Pt takes over 30 minutes to swallow medications. Delayed speech noted. Dr. Holguin notified. ABG drawn. CO2 critically high. BiPap placed. At noon rounding, hypothermic temp noted. Bear hugger placed on pt. Temp returns to normal, but quickly declines without bear hugger on. Dr. Holguin notified. Yañez catheter placed due to inability to fully relieve bladder and weakness. Pt requests Bipap off, so he can speak with family. Bipap off, 3L/NC placed. Dr. Holguin notified. brings in DPOA/living will. Pt states he would like to be a DNR/DNI. Dr. Holguin notified.
--- NOTE | 2024-12-28 18:33 | P.PN_ITS ---
<Statement entered by Toñito Brown M.D - 12/29/24 21:58> Patient was cared for in conjunction with an advanced practice practitioner. I personally reviewed the chart and all pertinent data including imaging, telemetry, and laboratory results. I discussed the patient in detail with the advanced practice practitioner. Please see their note for complete progress note, results and agreed upon plan of care for the patient. Subjective 2 Subjective: Patient was seen today. He states he feels somewhat better with his breathing, but still has some shortness of breath. Creatinine has increased to 1.5. He states he tried bipap, but did not want to wear it due to he couldn't talk with it on. Vitals/I&O/Wt Last Vital Signs Temp 98.1 F 12/28/24 16:00 Pulse 67 12/28/24 16:00 Resp 17 12/28/24 16:00 BP 117/85 12/28/24 16:00 Pulse Ox 92 12/28/24 16:00 O2 Del Method Nasal Cannula 12/28/24 16:00 O2 Flow Rate 2 12/28/24 07:37 FiO2 30 12/28/24 14:15 12/28/24 12/28/24 12/28/24 06:59 14:59 22:59 Intake Total 480 / 1560 290 / 290 360 / 650 Output Total 100 / 100 Balance 480 / 1110 190 / 190 360 / 550 Weight last 48 hrs Weight 215 lb Weight 215 lb Physical Exam 2 Narrative: General: No apparent distress, healthy appearing, well nourished HENMT: normoceophalic Muskuloskeletal: Full ROM Lymphatic: no lymphedema noted Respiratory: Normal respiratory effort, bilateral lower lobes diminished, no use of accessory muscles, using O2 Cardio: No JVD, regular rate, irregulary irregular rhythm, S1 S2 normal, no murmurs, peripheral pulses 2+ radial palpated bilaterally Extremities: Full ROM, normal, normal capillary refill, 1+ bilaterally Neuro: Alert and oriented x4, no focal motor deficits Psych: Affect normal, denies suicidal ideation, mental status grossly normal Skin: No rashes or lesions noted, no wounds Urinary Catheter Management: Coude: Cath Placed During This Visit: yes, but has since been removed by the nurse Reason for Continuing Indwelling Catheter: Decision to DC Catheter Urinary Catheter Date of Insertion: 12/28/24 Urinary Catheter Time of Insertion: 15:21 Date Urinary Catheter Removed: 12/26/24 Time Urinary Catheter Discontinued: 16:47 Data 12/28/24 04:45 12/28/24 05:58 Micro: Microbiology 12/27/24 12:26 Urine Culture - Preliminary Urine,Clean Catch A&P Assessment and plan (1) Shock: (2) Acute kidney injury: (3) Hypoxia: (4) Influenza A: (5) COPD (chronic obstructive pulmonary disease): (6) Hypertrophic cardiomyopathy: (7) CAD (coronary artery disease): Plan Creatinine has increased to 1.5. We will hold diuretics at this time. Recheck in the morning. Continue amiodarone. PDMP PDMP Reviewed: Not Reviewed Attestations 2 Medical Necessity Statement*: Deferred to primary. Coding Level of Care Code Acute Code for [facility] Fwd Diagnoses Shock R57.9 Acute kidney injury N17.9 Hypoxia R09.02 Influenza A J10.1 COPD (chronic obstructive pulmonary disease) J44.9 Hypertrophic cardiomyopathy I42.2 CAD (coronary artery disease) I25.10
[2024-12-29] VITALS (16 sets, daily range): BP systolic 98–154; BP diastolic 60–83; PULSE 65–98; RESP 15–26; TEMP 36.3–36.7; O2SAT 94–98
[2024-12-29] MEDS: ipratropium 0.5 mg/2.5 mL Neb INHALATION ×4 (02:27→20:28)
[2024-12-29] MEDS: levalbuterol 0.63 mg/3 mL Neb INHALATION ×4 (02:27→20:28)
[2024-12-29] MEDS: methylPREDNISolone sod succ 40 mg SDV IVP ×2 (02:50→07:44)
[2024-12-29 04:40] LABS: Lymphocytes # 0.6 10^3/uL (0.8-4.8); Lymphocytes % 5.9 %; Mean Corpuscular Hemoglobin 29.8 pg (27-33); Mean Corpuscular Volume 93.2 fl (82-101); Mean Platelet Volume 10.8 fL (7.4-10.4); Monocytes # 0.3 10^3/uL (0.2-0.9); Neutrophils # 8.49 10^3/uL (1.8-7.7); Neutrophils % 90.7 %; Nucleated Red Blood Cells % 0 %; Platelet Count 144 10^3/cmm (157-399); Red Blood Count 4.29 10^6/uL (3.85-5.65); Red Cell Distribution Width 13.7 % (12.1-15.1); White Blood Count 9.36 10^3/uL (3.29-11.43)
[2024-12-29 04:58] LABS: Albumin Level 3.4 g/dL (3.5-5.2); Anion Gap 14.6 (5-19); Blood Urea Nitrogen 46 mg/dL (8-23); Carbon Dioxide 28 mmol/L (22-29); Chloride 96 mmol/L (98-107); Creatinine Clr Calc Pharmacy 64.8251; Glucose 140 mg/dL (65-115); Magnesium 2.2 mg/dL (1.7-2.3); Phosphorus 2.4 mg/dL (2.5-4.5); Potassium 4.6 mmol/L (3.5-5.1); Sodium 134 mmol/L (136-145)
[2024-12-29] MEDS: atorvastatin 40 mg Tablet 80 MG PO (07:42)
[2024-12-29] MEDS: docusate sodium 100 mg Capsule PO ×2 (07:43→17:24)
[2024-12-29] MEDS: apixaban 5 mg Tablet PO ×2 (07:43→17:24)
[2024-12-29] MEDS: acetaminophen 325 mg Tablet 650 MG PO (07:43)
[2024-12-29] MEDS: aspirin 81 mg EC Tablet PO (07:43)
[2024-12-29] MEDS: amiodarone 200 mg Tablet 400 MG PO ×2 (07:43→17:24)
[2024-12-29] MEDS: baclofen 10 mg Tablet PO ×2 (07:43→17:24)
[2024-12-29] MEDS: budesonide 0.5 mg/2 mL Neb INHALATION ×2 (07:44→20:28)
[2024-12-29] MEDS: FUROsemide 10 mg/mL SDV 4mL 40 MG IVP (11:19)
--- NOTE | 2024-12-29 11:54 | P.PN_ITS ---
Subjective 2 Subjective: Patient Dors is continued shortness of breath. Is much more awake and interactive this morning. He was encephalopathic yesterday and unable provide history. Several family members are bedside. Discussed plan of care moving forward. Patient notes that he is very weak and debilitated. He is now willing to consider postacute rehabilitation. Medications: Reviewed: Yes Vitals/I&O/Wt Last Vital Signs Temp 97.4 F L 12/29/24 11:41 Pulse 79 12/29/24 11:41 Resp 18 12/29/24 11:41 BP 98/60 12/29/24 11:41 Pulse Ox 98 12/29/24 11:41 O2 Del Method Nasal Cannula 12/29/24 11:41 O2 Flow Rate 4 12/29/24 08:00 FiO2 36 12/29/24 04:20 12/28/24 12/29/24 12/29/24 22:59 06:59 14:59 Intake Total 480 / 770 480 / 1250 240 / 240 Output Total 500 / 600 Balance 480 / 670 -20 / 650 240 / 240 Weight last 48 hrs Weight 97.522 kg Physical Exam 2 Narrative: General: Patient is awake. Alert. Ill-appearing. Head: Normocephalic. Atraumatic. EOM intact. Neck: Elevated JVD. Cardiovascular: RRR. No gallops. No murmurs. 1+ pitting edema bilateral lower extremities, same as yesterday Lungs: Pertinent crackles and rales. No wheezing. Conversational dyspnea. Tachypneic. On 4 L nasal cannula. Skin: No jaundice. No rashes. Abdomen: Normal bowel sounds, abdomen soft and nontender. Extremities: No cyanosis or clubbing. Musculoskeletal: No swollen or erythematous joints. Neurological: Moves all 4 extremities. No myoclonus. Urinary Catheter Management: Coude: Cath Placed During This Visit: yes, but has since been removed by the nurse Reason for Continuing Indwelling Catheter: Acute Urinary Retention or Obstruction Urinary Catheter Date of Insertion: 12/28/24 Urinary Catheter Time of Insertion: 15:21 Date Urinary Catheter Removed: 12/26/24 Time Urinary Catheter Discontinued: 16:47 Data 12/29/24 04:20 12/29/24 04:20 Micro: Microbiology 12/27/24 12:26 Urine Culture - Final Urine,Clean Catch 12/23/24 20:49 Blood Culture - Final Blood NO GROWTH AFTER 5 DAYS 12/23/24 20:47 Blood Culture - Final Blood NO GROWTH AFTER 5 DAYS A&P Assessment and plan (1) CHF (congestive heart failure): Acute on chronic heart failure with preserved ejection fraction exacerbation Remains volume overloaded Continue IV diuresis, monitor hemodynamics Strict I's and O's Daily weights (2) Hypoxia: Acute on chronic hypoxic respiratory failure Acute hypercapnic respiratory failure CO2 narcosis is improved, may need additional BiPAP treatment pending clinical course Treating underlying CHF, COPD, pneumonia Blood gases as needed (3) Influenza A: Completed Tamiflu Off droplet precautions (4) COPD (chronic obstructive pulmonary disease): COPD with acute exacerbation Continue Solu-Medrol, narrow to prednisone soon Continue current breathing treatments (5) Weakness: Therapy as tolerated Anticipate postacute care (6) CAD (coronary artery disease): Patient came in with elevated troponin, diagnosed with an NSTEMI Cardiology is following He is declining ischemic evaluation Continue aspirin Continue high intensity statin Continue beta-lillian (7) Pneumonia: Continue meropenem for now (8) Atrial fibrillation: Continue amiodarone Continue metoprolol (9) Hypertrophic cardiomyopathy: Minimize heart rate as tolerated, continue with current beta-lillian Will follow-up with his outpatient customer support representative after recovery Plan DVT prophylaxis: Apixaban PDMP PDMP Reviewed: Not Reviewed Attestations 2 Medical Necessity Statement*: Patient requires ongoing hospitalization for respiratory support, IV antibiotics, IV steroids, IV diuresis and supportive care. Coding Level of Care Code Acute Code for [facility] Diagnoses CHF (congestive heart failure) I50.9 Hypoxia R09.02 Influenza A J10.1 COPD (chronic obstructive pulmonary disease) J44.9 Weakness R53.1 CAD (coronary artery disease) I25.10 Pneumonia J18.9 Atrial fibrillation I48.91 Hypertrophic cardiomyopathy I42.2
--- NOTE | 2024-12-29 14:36 | P.PN_ITS ---
<Statement entered by Toñito Brown M.D - 12/29/24 22:09> Patient was cared for in conjunction with an advanced practice practitioner. I personally reviewed the chart and all pertinent data including imaging, telemetry, and laboratory results. I discussed the patient in detail with the advanced practice practitioner. Please see their note for complete progress note, results and agreed upon plan of care for the patient. Subjective 2 Subjective: Patient is doing okay. He still has some shortness of breath. Still has fine crackles bilateral lower lobes with some edema. Creatinine is stable at 1.1. Vitals/I&O/Wt Last Vital Signs Temp 97.4 F L 12/29/24 11:41 Pulse 73 12/29/24 13:27 Resp 18 12/29/24 13:27 BP 98/60 12/29/24 11:41 Pulse Ox 98 12/29/24 13:27 O2 Del Method Nasal Cannula 12/29/24 13:27 O2 Flow Rate 3 12/29/24 13:27 FiO2 36 12/29/24 04:20 12/28/24 12/29/24 12/29/24 22:59 06:59 14:59 Intake Total 480 / 770 480 / 1250 600 / 600 Output Total 500 / 600 Balance 480 / 670 -20 / 650 600 / 600 Weight last 48 hrs Weight 215 lb Physical Exam 2 Narrative: General: No apparent distress HENMT: normoceophalic Muskuloskeletal: Full ROM Lymphatic: no lymphedema noted Respiratory: Normal respiratory effort, bilateral lower lobes diminished with fine crackles, no use of accessory muscles, using O2 Cardio: No JVD, regular rate, irregulary irregular rhythm, S1 S2 normal, no murmurs, peripheral pulses 2+ radial palpated bilaterally Extremities: Full ROM, normal, normal capillary refill, 1+ edema bilaterally Neuro: Alert and oriented x4, no focal motor deficits Psych: Affect normal, denies suicidal ideation, mental status grossly normal Skin: No rashes or lesions noted, no wounds Urinary Catheter Management: Coude: Cath Placed During This Visit: yes, but has since been removed by the nurse Reason for Continuing Indwelling Catheter: Acute Urinary Retention or Obstruction Urinary Catheter Date of Insertion: 12/28/24 Urinary Catheter Time of Insertion: 15:21 Date Urinary Catheter Removed: 12/26/24 Time Urinary Catheter Discontinued: 16:47 Data 12/29/24 04:20 12/29/24 04:20 Micro: Microbiology 12/27/24 12:26 Urine Culture - Final Urine,Clean Catch 12/23/24 20:49 Blood Culture - Final Blood NO GROWTH AFTER 5 DAYS 12/23/24 20:47 Blood Culture - Final Blood NO GROWTH AFTER 5 DAYS A&P Assessment and plan (1) Shock: (2) Acute kidney injury: (3) Hypoxia: (4) Influenza A: (5) COPD (chronic obstructive pulmonary disease): (6) Hypertrophic cardiomyopathy: (7) CAD (coronary artery disease): Plan Creatinine is stable. Will restart Lasix 20 mg with potassium daily. Continue with light diuresis and closely monitor creatinine. PDMP PDMP Reviewed: Not Reviewed Attestations 2 Medical Necessity Statement*: Deferred to primary. Coding Level of Care Code Acute Code for [facility] Diagnoses Shock R57.9 Acute kidney injury N17.9 Hypoxia R09.02 Influenza A J10.1 COPD (chronic obstructive pulmonary disease) J44.9 Hypertrophic cardiomyopathy I42.2 CAD (coronary artery disease) I25.10
[2024-12-29] MEDS: methylPREDNISolone sod succ 40 mg/mL INJ IVP ×2 (14:56→20:29)
[2024-12-29] MEDS: ALPRAZolam 0.5 mg Tablet PO (17:24)
[2024-12-29] MEDS: metoprolol tartrate 25 mg Tablet 75 MG PO (20:29)
[2024-12-29] MEDS: guaiFENesin 600 mg Tablet 1200 MG PO (20:35)
[2024-12-30] VITALS (18 sets, daily range): BP systolic 102–128; BP diastolic 66–91; PULSE 62–87; RESP 14–27; TEMP 35.8–36.5; O2SAT 92–98
[2024-12-30] MEDS: methylPREDNISolone sod succ 40 mg/mL INJ IVP ×3 (02:17→21:00)
[2024-12-30] MEDS: ipratropium 0.5 mg/2.5 mL Neb INHALATION ×4 (03:05→19:43)
[2024-12-30] MEDS: levalbuterol 0.63 mg/3 mL Neb INHALATION ×4 (03:05→19:43)
[2024-12-30 05:59] LABS: Basophils % 0.1 %; Hematocrit 40.7 % (37-53); Lymphocytes # 0.3 10^3/uL (0.8-4.8); Mean Corpuscular HGB Conc 32.9 g/dL (30-55); Mean Corpuscular Hemoglobin 30.2 pg (27-33); Mean Corpuscular Volume 91.9 fl (82-101); Mean Platelet Volume 10.6 fL (7.4-10.4); Monocytes # 0.3 10^3/uL (0.2-0.9); Monocytes % 2.9 %; Neutrophils # 9.93 10^3/uL (1.8-7.7); Neutrophils % 93.7 %; Nucleated Red Blood Cells % 0 %; Platelet Count 150 10^3/cmm (157-399); Red Blood Count 4.43 10^6/uL (3.85-5.65); Red Cell Distribution Width 13.2 % (12.1-15.1)
[2024-12-30 06:26] LABS: Albumin Level 3.3 g/dL (3.5-5.2); Anion Gap 10.5 (5-19); Blood Urea Nitrogen 43 mg/dL (8-23); Calcium 9.1 mg/dL (8.5-10.5); Carbon Dioxide 35 mmol/L (22-29); Chloride 93 mmol/L (98-107); Creatinine Clr Calc Pharmacy 64.8251; Glucose 159 mg/dL (65-115); Magnesium 2.3 mg/dL (1.7-2.3); Phosphorus 2.7 mg/dL (2.5-4.5); Potassium 4.5 mmol/L (3.5-5.1); Sodium 134 mmol/L (136-145)
[2024-12-30] MEDS: budesonide 0.5 mg/2 mL Neb INHALATION ×2 (08:19→19:43)
[2024-12-30] MEDS: amiodarone 200 mg Tablet 400 MG PO ×2 (08:42→16:24)
[2024-12-30] MEDS: docusate sodium 100 mg Capsule PO ×2 (08:42→16:25)
[2024-12-30] MEDS: atorvastatin 40 mg Tablet 80 MG PO (08:42)
[2024-12-30] MEDS: apixaban 5 mg Tablet PO ×2 (08:43→16:24)
[2024-12-30] MEDS: baclofen 10 mg Tablet PO ×2 (08:43→16:25)
[2024-12-30] MEDS: aspirin 81 mg EC Tablet PO (08:43)
[2024-12-30] MEDS: metoprolol tartrate 25 mg Tablet 75 MG PO ×2 (08:43→21:00)
[2024-12-30] MEDS: FUROsemide 10 mg/mL SDV 4mL 40 MG IVP (08:50)
[2024-12-30 09:32] LABS: ABG PH Result 7.28 (7.35-7.45); Arterial Blood Gas Hematocrit 48.2 % (42-52); Base Excess ABG 7.4 mmol/L (-2.0-2.0); Blood Gas Allen Test Pos; Blood Gas Operator Identificat WALCI; Blood Gas Sample Site Radial, left; Blood Gas Sample Type Arterial; Carboxyhemoglobin 1.1 %THgb (0.4-20.1); HCO3 ABG 37.9 mmol/L (22-26); HGB O2 Sat 87.6 % (95-100); Ionized Calcium Level - ABG 1.3 mmol/L (1.1-1.4); Methemoglobin 1.1 % (0.4-1.5); Oxygen Device NC; Oxygen Saturation ABG 89.6; PO2 ABG 62.6 mmHg (80.0-100.0); Potassium Level - ABG 4.5 mmol/L (3.5-5.0); Total Hemoglobin 15.7 g/dL (14-18)
[2024-12-30 09:34] LABS: ABG PCO2 80.7 mmHg (35-45)
--- NOTE | 2024-12-30 09:47 | P.PN_ITS ---
Subjective 2 Subjective: Patient reports he had an ok night. Endorses some confusion. Spouse is bedside and was able to stay the night. She reports overall the night was better than the night prior. Different BIPAP mask was tried and he reports he did slightly better with the new mask. Denies fevers or chills. Reports ongoing SOB. Reports weakness and eager to work with therapy again. He is showing signs of CO2 narcosis again on exam. Medications: Reviewed: Yes Vitals/I&O/Wt Last Vital Signs Temp 97.4 F L 12/30/24 08:27 Pulse 62 12/30/24 08:41 Resp 16 12/30/24 08:27 BP 102/66 12/30/24 08:27 Pulse Ox 94 12/30/24 08:27 O2 Del Method Nasal Cannula 12/30/24 08:27 O2 Flow Rate 3.5 12/30/24 08:21 FiO2 30 12/29/24 23:47 12/29/24 12/30/24 12/30/24 22:59 06:59 14:59 Intake Total 360 / 360 Output Total 550 / 550 Balance -550 / 50 360 / 360 Physical Exam 2 Narrative: General: Patient is awake but not alert. Falls asleep during exam. Head: Normocephalic. Atraumatic. EOM intact. Neck: Elevated JVD. Cardiovascular: RRR. No gallops. No murmurs. 1-2+ pitting edema bilateral lower extremities. Lungs: Pertinent crackles and rales. No wheezing. Conversational dyspnea. Tachypneic. On nasal cannula. Skin: No jaundice. No rashes. Abdomen: Normal bowel sounds, abdomen soft and nontender. Extremities: No cyanosis or clubbing. Musculoskeletal: No swollen or erythematous joints. Neurological: Moves all 4 extremities. No myoclonus. Urinary Catheter Management: Coude: Cath Placed During This Visit: yes, but has since been removed by the nurse Reason for Continuing Indwelling Catheter: Acute Urinary Retention or Obstruction Urinary Catheter Date of Insertion: 12/28/24 Urinary Catheter Time of Insertion: 15:21 Date Urinary Catheter Removed: 12/26/24 Time Urinary Catheter Discontinued: 16:47 Data 12/30/24 05:33 12/30/24 05:33 Micro: Microbiology 12/27/24 12:26 Urine Culture - Final Urine,Clean Catch A&P Assessment and plan (1) CHF (congestive heart failure): Acute on chronic heart failure with preserved ejection fraction exacerbation Remains volume overloaded, need fluid off Increase IV Lasix Start fluid restriction Strict I's and O's Daily weights (2) Hypoxia: Acute on chronic hypoxic respiratory failure Acute hypercapnic respiratory failure Repeat blood gas ordered, CO2 narcosis expected Continue BiPAP Working on fluid balance (3) COPD (chronic obstructive pulmonary disease): COPD with acute exacerbation Continue Solu-Medrol, reduce dose Continue current breathing treatments (4) Weakness: Therapy as tolerated Anticipate postacute care (5) CAD (coronary artery disease): Patient came in with elevated troponin, diagnosed with an NSTEMI treated medically Continue aspirin Continue high intensity statin Continue beta-lillian (6) Pneumonia: Continue meropenem (7) Atrial fibrillation: Continue amiodarone Continue metoprolol (8) Hypertrophic cardiomyopathy: Minimize heart rate as tolerated, continue with current beta-lillian Will follow-up with his outpatient public service director after recovery (9) Influenza A: Completed Tamiflu Off droplet precautions Plan DVT prophylaxis: Apixaban PDMP PDMP Reviewed: Not Reviewed Attestations 2 Medical Necessity Statement*: Patient requires ongoing hospitalization for respiratory support, IV antibiotics, IV steroids, IV diuresis and supportive care. Coding Level of Care Code Acute Code for [facility] Diagnoses CHF (congestive heart failure) I50.9 Hypoxia R09.02 COPD (chronic obstructive pulmonary disease) J44.9 Weakness R53.1 CAD (coronary artery disease) I25.10 Pneumonia J18.9 Atrial fibrillation I48.91 Hypertrophic cardiomyopathy I42.2 Influenza A J10.1
--- NOTE | 2024-12-30 10:33 | PC.SOCIAL ---
IMM Update pg 2 of IMM Updated and reviewed w/ patient. Copy provided and copy dated, initialed and placed in chart.
--- NOTE | 2024-12-30 13:04 | PC.NURSE ---
Family takes pt off of BiPap to feed him icecream. Staff unaware of this. Daughter comes to nursing station states that pt is 80% on pulse ox and it is beeping. This RN comes into the room, to see pt off oxygen and BiPap. Family explains they took off Bipap and didn't think to put on oxygen. Educates family that pt Bipap should only be taken off by staff.
--- NOTE | 2024-12-30 13:11 | P.PN_ITS ---
Subjective 2 Subjective: Patient still has some shortness of breath. On exam he looks about the same. Denies any chest pain Vitals/I&O/Wt Last Vital Signs Temp 97.4 F L 12/30/24 12:04 Pulse 82 12/30/24 12:55 Resp 15 12/30/24 12:46 BP 128/91 12/30/24 12:04 Pulse Ox 98 12/30/24 12:50 O2 Del Method BiPAP 12/30/24 12:46 O2 Flow Rate 3.5 12/30/24 08:21 FiO2 30 12/30/24 12:50 12/29/24 12/30/24 12/30/24 22:59 06:59 14:59 Intake Total 360 / 360 Output Total 550 / 550 Balance -550 / 50 360 / 360 Physical Exam 2 Narrative: General: No apparent distress HENMT: normoceophalic Muskuloskeletal: Full ROM Lymphatic: no lymphedema noted Respiratory: Normal respiratory effort, bilateral lower lobes diminished with fine crackles, no use of accessory muscles, using O2 Cardio: No JVD, regular rate, irregulary irregular rhythm, S1 S2 normal, no murmurs, peripheral pulses 2+ radial palpated bilaterally Extremities: Full ROM, normal, normal capillary refill, 1+ edema bilaterally Neuro: Alert and oriented x4, no focal motor deficits Psych: Affect normal, denies suicidal ideation, mental status grossly normal Skin: No rashes or lesions noted, no wounds Urinary Catheter Management: Coude: Cath Placed During This Visit: yes, but has since been removed by the nurse Reason for Continuing Indwelling Catheter: Acute Urinary Retention or Obstruction Urinary Catheter Date of Insertion: 12/28/24 Urinary Catheter Time of Insertion: 15:21 Date Urinary Catheter Removed: 12/26/24 Time Urinary Catheter Discontinued: 16:47 Data 12/30/24 05:33 12/30/24 05:33 Micro: Microbiology 12/27/24 12:26 Urine Culture - Final Urine,Clean Catch A&P Assessment and plan (1) Shock: (2) Acute kidney injury: (3) Hypoxia: (4) Influenza A: (5) COPD (chronic obstructive pulmonary disease): (6) Hypertrophic cardiomyopathy: (7) CAD (coronary artery disease): Plan Creatinine is stable. Recommend continue light diuresis with close monitoring of creatinine. He still has fine crackles with edema. PDMP PDMP Reviewed: Not Reviewed Attestations 2 Medical Necessity Statement*: Deferred to primary. Coding Level of Care Code Acute Code for [facility] Diagnoses Shock R57.9 Acute kidney injury N17.9 Hypoxia R09.02 Influenza A J10.1 COPD (chronic obstructive pulmonary disease) J44.9 Hypertrophic cardiomyopathy I42.2 CAD (coronary artery disease) I25.10
--- NOTE | 2024-12-30 14:45 | PC.OT ---
Unable to complete OT evaluation at this time due to patient on BiPap will attempt again at a later time.
--- NOTE | 2024-12-30 16:04 | PC.NURSE ---
Pt daughter comes up to nurses station stating that the call light has been on for a long time and nobody ever answers. The call light system states light has been on approx. 1 min, 30 sec. Confirms with ANEESH Ramriezweigh and charge worker nurse. This RN responds to call light. Needs addressed. While in room, RN inquires to ensure the call light system is working appropriately. The other daughter states that call light was not on for very long.
[2024-12-30] MEDS: lidocaine 2% viscous 15 ML, aluminum-mag hydrox-simethicon 30 ML, sucralfate oral liq 1 GM PO (22:43)
[2024-12-31] VITALS (14 sets, daily range): BP systolic 111–141; BP diastolic 66–86; PULSE 67–90; RESP 14–20; TEMP 36.3–36.6; O2SAT 90–95
[2024-12-31] MEDS: ipratropium 0.5 mg/2.5 mL Neb INHALATION ×4 (02:40→19:54)
[2024-12-31] MEDS: levalbuterol 0.63 mg/3 mL Neb INHALATION ×4 (02:40→19:54)
[2024-12-31 05:09] LABS: Basophils % 0.2 %; Hematocrit 43.3 % (37-53); Lymphocytes # 0.3 10^3/uL (0.8-4.8); Mean Corpuscular HGB Conc 32.6 g/dL (30-55); Mean Corpuscular Hemoglobin 30.7 pg (27-33); Mean Corpuscular Volume 94.1 fl (82-101); Mean Platelet Volume 10.5 fL (7.4-10.4); Monocytes # 0.5 10^3/uL (0.2-0.9); Monocytes % 4.7 %; Neutrophils # 10.07 10^3/uL (1.8-7.7); Neutrophils % 91.6 %; Nucleated Red Blood Cells % 0 %; Platelet Count 143 10^3/cmm (157-399); Red Cell Distribution Width 13.5 % (12.1-15.1)
[2024-12-31 05:24] LABS: Albumin Level 3.5 g/dL (3.5-5.2); Anion Gap 9.5 (5-19); Blood Urea Nitrogen 40 mg/dL (8-23); Calcium 9.4 mg/dL (8.5-10.5); Carbon Dioxide 37 mmol/L (22-29); Chloride 89 mmol/L (98-107); Creatinine Clr Calc Pharmacy 64.8251; Glucose 138 mg/dL (65-115); Magnesium 2.4 mg/dL (1.7-2.3); Phosphorus 2.3 mg/dL (2.5-4.5); Potassium 4.5 mmol/L (3.5-5.1); Sodium 131 mmol/L (136-145)
[2024-12-31] MEDS: docusate sodium 100 mg Capsule PO ×2 (08:05→17:15)
[2024-12-31] MEDS: atorvastatin 40 mg Tablet 80 MG PO (08:05)
[2024-12-31] MEDS: amiodarone 200 mg Tablet 400 MG PO ×2 (08:05→17:15)
[2024-12-31] MEDS: aspirin 81 mg EC Tablet PO (08:05)
[2024-12-31] MEDS: baclofen 10 mg Tablet PO (08:05)
[2024-12-31] MEDS: metoprolol tartrate 25 mg Tablet 75 MG PO ×2 (08:05→23:28)
[2024-12-31] MEDS: apixaban 5 mg Tablet PO (08:05)
[2024-12-31] MEDS: methylPREDNISolone sod succ 40 mg/mL INJ IVP (08:06)
[2024-12-31] MEDS: FUROsemide 10 mg/mL SDV 4mL 40 MG IVP ×2 (08:06→15:07)
[2024-12-31] MEDS: budesonide 0.5 mg/2 mL Neb INHALATION ×2 (08:30→19:54)
--- NOTE | 2024-12-31 08:36 | XRR_ITS ---
PROCEDURE INFORMATION: Exam: XR Abdomen Exam date and time: 12/31/2024 4:17 PM Age: 79 years old Clinical indication: Abdominal tenderness and constipation; Abdomen pain/distention; Constipation x 7+ days TECHNIQUE: Imaging protocol: Radiologic exam of the abdomen. Views: Frontal supine view of the abdomen. 1 View. COMPARISON: [place] [id number] 12/23/2024 6:49 PM FINDINGS: Gastrointestinal tract: Diffuse gaseous distension of the colon throughout the abdomen/pelvis. Mild gaseous prominence of some small bowel loops also seen. There appears to be redundant sigmoid colon. Vasculature: Atherosclerotic vascular calcifications. Bones/joints: Changes of median sternotomy. Degenerative changes of the spine and bilateral hips. XR/XR abdomen 1V* [id number] IMPRESSION: 1. Diffuse gaseous distension of predominantly large bowel loops could reflect distal colonic obstruction versus colonic pseudo-obstruction. This could be further assessed with CT if warranted. 2. The appearance of the sigmoid colon is favored to be redundant sigmoid colon rather than volvulus. Attention on follow-up imaging.
[2024-12-31] MEDS: sennosides 8.6 mg Tablet 17.2 MG PO ×2 (09:30→17:15)
[2024-12-31] MEDS: polyethylene glycol 3350 Pkt 17 gm PO ×2 (09:30→17:15)
--- NOTE | 2024-12-31 11:16 | P.PN_ITS ---
Subjective 2 Subjective: Patient reports last night when okay. He endorses continued shortness of breath. He does not appear confused this morning like he has been the last 2 mornings with CO2 retention. Overnight, he did develop gross hematuria with concerns there may have been some tugging on the Yañez catheter. Hematuria is currently very mild and light without clots. They discussed with patient and spouse to continue monitoring for worsening hematuria today. Volume status over the last 24 hours has shown some improvement with fluid restriction and increase of Lasix. I discussed ongoing plan to try to diurese with goal of net negative output. They are in agreement. Endorses persistent weakness. Medications: Reviewed: Yes Vitals/I&O/Wt Last Vital Signs Temp 97.6 F 12/31/24 08:23 Pulse 72 12/31/24 08:23 Resp 17 12/31/24 08:23 BP 141/86 12/31/24 08:23 Pulse Ox 95 12/31/24 08:23 O2 Del Method BiPAP 12/31/24 08:23 O2 Flow Rate 3 12/31/24 08:00 FiO2 30 12/31/24 00:00 12/30/24 12/31/24 12/31/24 22:59 06:59 14:59 Intake Total 480 / 1200 120 / 120 Output Total 900 / 1650 400 / 2050 750 / 750 Balance -420 / -450 -400 / -850 -630 / -630 Physical Exam 2 Narrative: General: Patient is awake. Sitting in bedside chair. Ill-appearing but less so than yesterday's exam. Head: Normocephalic. Atraumatic. EOM intact. Neck: Elevated JVD. Cardiovascular: RRR. No gallops. No murmurs. 1-2+ pitting edema bilateral lower extremities, largely similar to the prior exam yesterday. Lungs: Faint dependent crackles. Moderate air movement, still diminished at the bases. No wheezing. On nasal cannula. Skin: No jaundice. No rashes. Abdomen: Normal bowel sounds, abdomen soft and nontender. Extremities: No cyanosis or clubbing. Musculoskeletal: No swollen or erythematous joints. Neurological: Moves all 4 extremities. No myoclonus. Urinary Catheter Management: Coude: Cath Placed During This Visit: yes, but has since been removed by the nurse Reason for Continuing Indwelling Catheter: Accurate Measurement of Urinary Output in Critically Ill Patients Urinary Catheter Date of Insertion: 12/28/24 Urinary Catheter Time of Insertion: 15:21 Date Urinary Catheter Removed: 12/26/24 Time Urinary Catheter Discontinued: 16:47 Data 12/31/24 04:41 12/31/24 04:41 A&P Assessment and plan (1) CHF (congestive heart failure): Acute on chronic heart failure with preserved ejection fraction exacerbation Continue diuresis Maintain fluid restriction Strict I's and O's Daily weights (2) Hypoxia: Acute on chronic hypoxic respiratory failure Acute hypercapnic respiratory failure ABGs as needed Continue BiPAP while sleeping Continue working on fluid balance (3) COPD (chronic obstructive pulmonary disease): COPD with acute exacerbation Continue Solu-Medrol, reduce dose to daily dosing Continue current breathing treatments (4) Weakness: Therapy as tolerated Anticipate postacute care (5) CAD (coronary artery disease): Patient came in with elevated troponin, diagnosed with an NSTEMI treated medically Continue aspirin, hold for today due to hematuria Continue high intensity statin Continue beta-lillian (6) Pneumonia: Antibiotics and following off, will restart with Rocephin Repeat inflammatory markers in a.m. (7) Atrial fibrillation: Continue amiodarone, currently loading Continue metoprolol (8) Hypertrophic cardiomyopathy: Continue beta-lillian Will follow-up with his outpatient polisher apprentice after recovery (9) Influenza A: Completed Tamiflu (10) Gross hematuria: Likely related to Yañez catheter Monitor symptoms closely Will hold antiplatelet and anticoagulation for today with plans to restart tomorrow pending course Plan DVT prophylaxis: Apixaban PDMP PDMP Reviewed: Not Reviewed Attestations 2 Medical Necessity Statement*: Patient requires ongoing hospitalization for IV diuresis, IV antibiotics, IV steroids and supportive care. Coding Level of Care Code Acute Code for [facility] Diagnoses CHF (congestive heart failure) I50.9 Hypoxia R09.02 COPD (chronic obstructive pulmonary disease) J44.9 Weakness R53.1 CAD (coronary artery disease) I25.10 Pneumonia J18.9 Atrial fibrillation I48.91 Hypertrophic cardiomyopathy I42.2 Influenza A J10.1 Gross hematuria R31.0
[2024-12-31] MEDS: saline nasal spray 44mL Btl 1 SPRAY NASAL (11:27)
[2024-12-31] MEDS: cefTRIAXone 1,000 mg SDV 1000 MG IVP (11:32)
[2024-12-31] MEDS: baclofen 10 mg Tablet 5 MG PO (17:15)
--- NOTE | 2024-12-31 19:39 | CTR_ITS ---
PROCEDURE INFORMATION: Exam: CT Abdomen And Pelvis Without Contrast Exam date and time: 01/01/2025 5:51 AM Age: 79 years old Clinical indication: Abdominal pain; Additional info: Eval colonic dilation TECHNIQUE: Imaging protocol: Computed tomography of the abdomen and pelvis without contrast. Radiation optimization: All CT scans at this facility use at least one of these dose optimization techniques: automated exposure control; mA and/or kV adjustment per patient size (includes targeted exams where dose is matched to clinical indication); or iterative reconstruction. COMPARISON: [place] [id number] 12/23/2024 6:49 PM RADIATION DOSE METRICS: Total DLP (mGy-cm): 1223.58 FINDINGS: Lungs: Bibasilar infiltrates/atelectasis changes are seen. There are peripheral infiltrates seen in the visualized upper lobes. Coronary arteries: Coronary calcifications are seen. Liver: Calcified granulomas are seen in the visualized liver. Gallbladder and biliary ducts: Normal. No calcified stones. No ductal dilation. Pancreas: The pancreas is normal. Spleen: Calcified granulomas are seen in the spleen. Adrenal glands: Left adrenal gland nodular lesion is stable. Evaluation of the right adrenal gland is suboptimal due to streaky artifacts. Kidneys and ureters: There is a stable left renal exophytic simple cyst measuring 1.5 x 1.1 cm. There is no hydronephrosis. Stomach and bowel: There is sigmoid colon diverticulosis. Appendix is not visualized. No dilated small bowel loops seen. The rectosigmoid colon is filled with fluid. There is gaseous distension of the sigmoid colon. There is gaseous distension of the transverse colon. No obstructive colonic lesion is seen. Appendix: See Stomach and bowel finding. Intraperitoneal space: No free pelvic fluid. Vasculature: Mild calcified atherosclerotic changes are seen throughout the abdominal aorta. Mild calcified atherosclerotic changes are seen in the thoracic aorta. Lymph nodes: Unremarkable. No enlarged lymph nodes. Urinary bladder: A Yañez catheter is seen in the bladder. Bladder is decompressed. Reproductive: Prostate is enlarged measuring 5 cm. Bones/joints: Post sternotomy changes are seen. There is intervertebral disc narrowing is seen at the L5-S1 level. Soft tissues: Unremarkable. CT/CT abdomen pelvis wo con [id number] IMPRESSION: 1. There is sigmoid colon diverticulosis. 2. The rectosigmoid colon is filled with fluid. There is gaseous distension of the sigmoid colon. There is gaseous distension of the transverse colon. No obstructive colonic lesion is seen. 3. There are peripheral infiltrates seen in the visualized upper lobes. Atypical pneumonia can not be excluded. Imaging follow-up until resolution is advised 4. Coronary calcifications are seen. 5. Bibasilar infiltrates/atelectasis changes are seen. 6. Prostate is enlarged measuring 5 cm. Correlation with patient's PSA level is advised. 7. There is intervertebral disc narrowing is seen at the L5-S1 level. 8. Mild calcified atherosclerotic changes are seen in the thoracic aorta. 9. Mild calcified atherosclerotic changes are seen throughout the abdominal aorta.
[2025-01-01] VITALS (13 sets, daily range): BP systolic 97–129; BP diastolic 54–86; PULSE 67–84; RESP 15–28; TEMP 36.4–36.8; O2SAT 92–98
[2025-01-01] MEDS: ipratropium 0.5 mg/2.5 mL Neb INHALATION ×4 (02:38→20:54)
[2025-01-01] MEDS: levalbuterol 0.63 mg/3 mL Neb INHALATION ×4 (02:38→20:54)
[2025-01-01 04:03] LABS: Basophils % 0.1 %; Hematocrit 44.1 % (37-53); Lymphocytes # 0.5 10^3/uL (0.8-4.8); Lymphocytes % 3.8 %; Mean Corpuscular HGB Conc 32.7 g/dL (30-55); Mean Corpuscular Hemoglobin 29.8 pg (27-33); Mean Corpuscular Volume 91.1 fl (82-101); Mean Platelet Volume 10.6 fL (7.4-10.4); Monocytes # 0.9 10^3/uL (0.2-0.9); Monocytes % 7.4 %; Neutrophils # 10.48 10^3/uL (1.8-7.7); Neutrophils % 88.2 %; Nucleated Red Blood Cells % 0 %; Platelet Count 152 10^3/cmm (157-399); Red Blood Count 4.84 10^6/uL (3.85-5.65); Red Cell Distribution Width 13.2 % (12.1-15.1); White Blood Count 11.88 10^3/uL (3.29-11.43)
[2025-01-01 04:21] LABS: Alanine Aminotransferase 22 U/L (0-41); Albumin Level 3.4 g/dL (3.5-5.2); Alkaline Phosphatase 79 U/L (40-130); Anion Gap 10.1 (5-19); Aspartate Amino Transferase 24 U/L (0-40); Blood Urea Nitrogen 44 mg/dL (8-23); Calcium 8.9 mg/dL (8.5-10.5); Carbon Dioxide 37 mmol/L (22-29); Chloride 89 mmol/L (98-107); Creatinine Clr Calc Pharmacy 71.3076; Globulin 2.4 g/dL (1.3-4.6); Glucose 126 mg/dL (65-115); Magnesium 2.4 mg/dL (1.7-2.3); Osmolality Calculated 287 mOsm/kg (285-295); Phosphorus 2.2 mg/dL (2.5-4.5); Potassium 4.1 mmol/L (3.5-5.1); Sodium 132 mmol/L (136-145); Total Bilirubin 0.9 mg/dL (0.15-1.2); Total Protein 5.8 g/dL (6.6-8.7)
[2025-01-01 04:30] LABS: Procalcitonin 0.07 ng/mL (0-0.5)
[2025-01-01] MEDS: budesonide 0.5 mg/2 mL Neb INHALATION ×2 (08:56→20:54)
[2025-01-01] MEDS: polyethylene glycol 3350 Pkt 17 gm PO ×2 (09:15→17:34)
[2025-01-01] MEDS: atorvastatin 40 mg Tablet 80 MG PO (09:15)
[2025-01-01] MEDS: amiodarone 200 mg Tablet 400 MG PO ×2 (09:15→17:36)
[2025-01-01] MEDS: sennosides 8.6 mg Tablet 17.2 MG PO ×2 (09:16→17:35)
[2025-01-01] MEDS: baclofen 10 mg Tablet 5 MG PO ×2 (09:16→17:35)
[2025-01-01] MEDS: docusate sodium 100 mg Capsule PO ×2 (09:16→17:36)
[2025-01-01] MEDS: methylPREDNISolone sod succ 40 mg/mL INJ IVP (09:16)
[2025-01-01] MEDS: metoprolol tartrate 25 mg Tablet 75 MG PO ×2 (09:28→20:17)
[2025-01-01] MEDS: FUROsemide 10 mg/mL SDV 4mL 40 MG IVP ×2 (09:28→15:36)
--- NOTE | 2025-01-01 10:22 | P.PN_ITS ---
Subjective 2 Subjective: X-ray yesterday was abnormal showing significant gaseous bowel distention. CT obtained and resulted this morning revealing gaseous colonic dilation and liquid fecal matter. There is no bowel obstruction. Results discussed with patient and spouse. He denies any diarrhea or fluctuance. We discussed that he may develop this soon. He denies any abdominal symptoms. Spouse notes that his abdomen remains distended as compared to his normal. He reports continued shortness of breath. Tolerated the BiPAP some overnight. For the past couple of days he is finally net negative on fluid status. We discussed ongoing diuresis. Planning on nocturnal oximetry study tonight. Persistent mild hematuria noted. Medications: Reviewed: Yes Vitals/I&O/Wt Last Vital Signs Temp 97.8 F 01/01/25 08:00 Pulse 78 01/01/25 08:00 Resp 17 01/01/25 08:00 BP 129/86 01/01/25 08:00 Pulse Ox 98 01/01/25 08:00 O2 Del Method Nasal Cannula 01/01/25 08:00 O2 Flow Rate 2 01/01/25 08:00 FiO2 30 12/31/24 00:00 12/31/24 01/01/25 01/01/25 22:59 06:59 14:59 Intake Total 480 / 1080 240 / 240 Output Total 800 / 1550 800 / 2350 Balance -320 / -470 -800 / -1270 240 / 240 Physical Exam 2 Narrative: General: Patient is awake. Sitting in bedside chair.. Looks fatigued. Head: Normocephalic. Atraumatic. EOM intact. Neck: Elevated JVD. Cardiovascular: RRR. No gallops. No murmurs. 1+ pitting edema bilateral lower extremities, slightly improved from prior days. Lungs: Faint dependent crackles. Slightly improved air movement. No wheezing. On nasal cannula. Skin: No jaundice. No rashes. Abdomen: Normal bowel sounds, abdomen soft and nontender. : Yañez catheter with light hematuria. No clots. Extremities: No cyanosis or clubbing. Musculoskeletal: No swollen or erythematous joints. Neurological: Moves all 4 extremities. No myoclonus. Urinary Catheter Management: Coude: Cath Placed During This Visit: yes, but has since been removed by the nurse Reason for Continuing Indwelling Catheter: Chronic Indwelling Urinary Catheter on Admission Urinary Catheter Date of Insertion: 12/28/24 Urinary Catheter Time of Insertion: 15:21 Date Urinary Catheter Removed: 12/26/24 Time Urinary Catheter Discontinued: 16:47 Data 01/01/25 03:27 01/01/25 03:27 A&P Assessment and plan (1) CHF (congestive heart failure): Acute on chronic heart failure with preserved ejection fraction exacerbation Continue diuresis with Lasix 40 mg twice daily AC Maintain fluid restriction Strict I's and O's, still net positive greater than 3 L but improving daily Daily weights (2) Hypoxia: Acute on chronic hypoxic respiratory failure Acute hypercapnic respiratory failure ABGs as needed Continue BiPAP while sleeping Continue working on fluid balance Overnight oximetry study tonight (3) COPD (chronic obstructive pulmonary disease): COPD with acute exacerbation Continue Solu-Medrol, likely can transition to prednisone soon Continue current breathing treatments (4) Pneumonia: Continue ceftriaxone (5) Gross hematuria: Likely related to Yañez catheter, hematuria is very mild and improving Monitor symptoms closely Will hold aspirin and apixaban for secondary today, can likely restart soon (6) Abdominal distention: CT with gaseous distention of sigmoid and transverse colon with fluid in the rectosigmoid colon; no obstruction Patient is asymptomatic Monitor bowel output (7) Weakness: Therapy as tolerated He will need postacute rehabilitation, hopefully will be medically ready soon (8) CAD (coronary artery disease): Patient came in with elevated troponin, diagnosed with an NSTEMI treated medically Continue aspirin, hold for additional day due to hematuria Continue high intensity statin Continue beta-lillian (9) Atrial fibrillation: Continue amiodarone, currently loading Continue metoprolol Holding apixaban until gross hematuria improves (10) Hypertrophic cardiomyopathy: Continue beta-lillian Will follow-up with his outpatient surgical assistant after recovery (11) Influenza A: Completed Tamiflu Plan DVT prophylaxis: Apixaban PDMP PDMP Reviewed: Not Reviewed Attestations 2 Medical Necessity Statement*: Patient requires ongoing hospitalization for IV diuresis, IV antibiotics, IV steroids, therapy, and supportive care. Coding Level of Care Code Acute Code for Chg Fwd Diagnoses CHF (congestive heart failure) I50.9 Hypoxia R09.02 COPD (chronic obstructive pulmonary disease) J44.9 Pneumonia J18.9 Gross hematuria R31.0 Abdominal distention R14.0 Weakness R53.1 CAD (coronary artery disease) I25.10 Atrial fibrillation I48.91 Hypertrophic cardiomyopathy I42.2 Influenza A J10.1
[2025-01-01] MEDS: cefTRIAXone 1,000 mg SDV 1000 MG IVP (11:52)
--- NOTE | 2025-01-01 20:59 | PC.RESP ---
overnight pulse ox started at 2054. patient started on baseline 2lpm nc
[2025-01-02] VITALS (13 sets, daily range): BP systolic 94–138; BP diastolic 64–80; PULSE 68–92; RESP 17–19; TEMP 36.4–36.6; O2SAT 92–99
[2025-01-02] MEDS: ipratropium 0.5 mg/2.5 mL Neb INHALATION ×3 (01:09→20:04)
[2025-01-02] MEDS: levalbuterol 0.63 mg/3 mL Neb INHALATION ×3 (01:09→20:04)
[2025-01-02 06:47] LABS: Basophils % 0.1 %; Hematocrit 46.5 % (37-53); Lymphocytes # 0.4 10^3/uL (0.8-4.8); Lymphocytes % 3.4 %; Mean Corpuscular HGB Conc 32.5 g/dL (30-55); Mean Corpuscular Hemoglobin 30.6 pg (27-33); Mean Corpuscular Volume 94.1 fl (82-101); Mean Platelet Volume 10.6 fL (7.4-10.4); Monocytes # 0.7 10^3/uL (0.2-0.9); Monocytes % 5.8 %; Neutrophils # 11.43 10^3/uL (1.8-7.7); Nucleated Red Blood Cells % 0 %; Platelet Count 160 10^3/cmm (157-399); Red Blood Count 4.94 10^6/uL (3.85-5.65); Red Cell Distribution Width 13.4 % (12.1-15.1)
[2025-01-02 07:05] LABS: Albumin Level 3.4 g/dL (3.5-5.2); Anion Gap 10.6 (5-19); Blood Urea Nitrogen 44 mg/dL (8-23); Calcium 9.2 mg/dL (8.5-10.5); Carbon Dioxide 39 mmol/L (22-29); Chloride 88 mmol/L (98-107); Creatinine Clr Calc Pharmacy 63.7795; Glucose 116 mg/dL (65-115); Magnesium 2.5 mg/dL (1.7-2.3); Phosphorus 3.5 mg/dL (2.5-4.5); Potassium 4.6 mmol/L (3.5-5.1); Sodium 133 mmol/L (136-145)
[2025-01-02] MEDS: budesonide 0.5 mg/2 mL Neb INHALATION ×2 (07:22→20:04)
[2025-01-02] MEDS: polyethylene glycol 3350 Pkt 17 gm PO ×2 (08:20→18:06)
[2025-01-02] MEDS: sennosides 8.6 mg Tablet 17.2 MG PO ×2 (08:21→18:05)
[2025-01-02] MEDS: metoprolol tartrate 25 mg Tablet 75 MG PO ×2 (08:21→21:43)
[2025-01-02] MEDS: amiodarone 200 mg Tablet 400 MG PO (08:22)
[2025-01-02] MEDS: baclofen 10 mg Tablet 5 MG PO ×2 (08:22→18:07)
[2025-01-02] MEDS: methylPREDNISolone sod succ 40 mg/mL INJ IVP (08:22)
[2025-01-02] MEDS: atorvastatin 40 mg Tablet 80 MG PO (08:22)
[2025-01-02] MEDS: docusate sodium 100 mg Capsule PO ×2 (08:22→18:07)
[2025-01-02] MEDS: FUROsemide 10 mg/mL SDV 4mL 40 MG IVP (08:24)
[2025-01-02] MEDS: cefTRIAXone 1,000 mg SDV 1000 MG IVP (11:04)
[2025-01-02] MEDS: magnesium hydroxide 30 mL UDC PO (13:13)
[2025-01-02] MEDS: acetaZOLAMIDE 250 mg Tablet 500 MG PO (13:13)
--- NOTE | 2025-01-02 15:20 | PC.SOCIAL ---
IMM Updated IMM dates and initialed, copy placed in chart and copy given to patient
--- NOTE | 2025-01-02 16:23 | P.PN_ITS ---
Subjective 2 Subjective: Hospital course, labs appreciated. Patient seen today morning sitting up in recliner with family at bedside. Patient is awake and alert. Fairly weak. Has remained hemodynamically stable and afebrile. Complaining of mild difficulty breathing but improving from yesterday. Currently on 2 L of oxygen supplementation. States he is not able to take a deep breath. Medications: Reviewed: Yes Vitals/I&O/Wt Last Vital Signs Temp 97.5 F L 01/02/25 11:02 Pulse 92 01/02/25 11:02 Resp 19 H 01/02/25 11:02 BP 123/79 01/02/25 11:02 Pulse Ox 95 01/02/25 13:50 O2 Del Method Nasal Cannula 01/02/25 13:50 O2 Flow Rate 2 01/02/25 13:50 FiO2 30 01/01/25 16:05 01/02/25 01/02/25 01/02/25 06:59 14:59 22:59 Intake Total 480 / 480 Output Total 150 / 1300 Balance -150 / -460 480 / 480 Physical Exam 2 Narrative: General: No acute distress, AO x3, nasal cannula, sick appearing, frail, generalized weak HEENT: PERRLA, pupils bilaterally equal and reactive Chest: Bronchial breath sounds all over lung pack occasional rhonchi diffusely present all over lung pack CVS: S1-S2 regular, no murmurs, tachycardia, no gallops, no rubs Abdomen: Soft, nontender, no organomegaly, bowel sounds present Neuro: No focal deficits, no facial deformity, AO x3, power 5/5 in all limbs Urinary Catheter Management: Coude: Cath Placed During This Visit: yes, but has since been removed by the nurse Reason for Continuing Indwelling Catheter: Accurate Measurement of Urinary Output in Critically Ill Patients Urinary Catheter Date of Insertion: 12/28/24 Urinary Catheter Time of Insertion: 15:21 Date Urinary Catheter Removed: 12/26/24 Time Urinary Catheter Discontinued: 16:47 Data 01/02/25 06:19 01/02/25 06:19 A&P Assessment and plan (1) Hypoxia: Acute on chronic hypoxic respiratory failure Acute hypercapnic respiratory failure Setting of COPD exacerbation due to recent pneumonia and flu along with congestive heart failure. Oxygen supplementation keeping saturation over 90%. (2) CHF (congestive heart failure): Acute on chronic heart failure with preserved ejection fraction exacerbation Patient developing mild contraction alkalosis. BUN elevated. Change Lasix to 40 mg IV daily. Add acetazolamide 5 mg oral daily. Fluid restriction to less than 1500 cc. Strict input output charting, daily weights. DC Yañez catheter. (3) COPD (chronic obstructive pulmonary disease): COPD with acute exacerbation Wean Solu-Medrol followed to 20 mg oral daily. Will plan to transition to oral prednisone for the next 24 hours. Continue with Pulmicort twice daily, ipratropium, Xopenex every 6 hour. Aggressive pulmonary toilet with incentive spirometry. (4) Pneumonia: Patient has had multiple use of IV antibiotics including meropenem, vancomycin and currently ceftriaxone. For now we will hold off on IV antibiotics and monitor. (5) Gross hematuria: Likely related to Yañez catheter, hematuria is very mild and improving Monitor symptoms closely Will hold aspirin and apixaban for secondary today, can likely restart soon (6) Abdominal distention: CT with gaseous distention of sigmoid and transverse colon with fluid in the rectosigmoid colon; no obstruction Patient is asymptomatic Continue with aggressive bowel regimen. (7) Weakness: Therapy as tolerated He will need postacute rehabilitation, hopefully will be medically ready soon. Appreciate physical therapy note from today. Peer to peer done with nursing and has been approved for SNF. Family requesting CT head to rule out stroke. (8) CAD (coronary artery disease): Patient came in with elevated troponin, diagnosed with an NSTEMI treated medically Continue aspirin, hold for additional day due to hematuria Continue high intensity statin Continue beta-lillian (9) Atrial fibrillation: Continue amiodarone, currently loading Continue metoprolol Holding apixaban until gross hematuria improves. Will restart Eliquis if hematuria continues to resolve. DC Yañez catheter. Bladder scanning as needed. (10) Hypertrophic cardiomyopathy: Continue beta-lillian Will follow-up with his outpatient weigh machine operator after recovery (11) Influenza A: Completed Tamiflu (12) Physical deconditioning: Plan SCD for DVT prophylaxis. Eliquis on hold given concerns for hematuria. Protonix for PUD prophylaxis Cardiac diet PDMP PDMP Reviewed: Not Reviewed Attestations 2 Medical Necessity Statement*: Requires further hospitalization for management of hypoxic respiratory failure, generalized deconditioning in setting of influenza, superadded bacterial infection, YANET, CHF, hematuria while safe discharge planning is sought Diagnoses Hypoxia R09.02 CHF (congestive heart failure) I50.9 COPD (chronic obstructive pulmonary disease) J44.9 Pneumonia J18.9 Gross hematuria R31.0 Abdominal distention R14.0 Weakness R53.1 CAD (coronary artery disease) I25.10 Atrial fibrillation I48.91 Hypertrophic cardiomyopathy I42.2 Influenza A J10.1 Physical deconditioning R53.81
[2025-01-02] MEDS: amiodarone 200 mg Tablet PO (18:07)
[2025-01-02] MEDS: metoclopramide 5 mg/mL SDV 2 mL IVP (18:07)
[2025-01-03 02:23] VITALS: PULSE 60; RESP 17; O2SAT 99
[2025-01-03] MEDS: levalbuterol 0.63 mg/3 mL Neb INHALATION ×2 (02:23→07:46)
[2025-01-03] MEDS: ipratropium 0.5 mg/2.5 mL Neb INHALATION ×2 (02:23→07:46)
[2025-01-03 02:30] VITALS: PULSE 67
[2025-01-03 03:28] VITALS: BP 132/68; PULSE 72; RESP 18; TEMP 36.6; O2SAT 92
[2025-01-03] MEDS: metoclopramide 5 mg/mL SDV 2 mL IVP (05:33)
[2025-01-03 05:41] LABS: Basophils % 0.1 %; Hematocrit 46.1 % (37-53); Lymphocytes # 0.4 10^3/uL (0.8-4.8); Lymphocytes % 2.7 %; Mean Corpuscular HGB Conc 31.7 g/dL (30-55); Mean Corpuscular Hemoglobin 29.8 pg (27-33); Mean Corpuscular Volume 94.1 fl (82-101); Monocytes # 0.5 10^3/uL (0.2-0.9); Monocytes % 3.7 %; Neutrophils # 13.63 10^3/uL (1.8-7.7); Nucleated Red Blood Cells % 0 %; Platelet Count 145 10^3/cmm (157-399); Red Cell Distribution Width 13.2 % (12.1-15.1); White Blood Count 14.65 10^3/uL (3.29-11.43)
[2025-01-03 05:59] LABS: Alanine Aminotransferase 25 U/L (0-41); Albumin Level 3.3 g/dL (3.5-5.2); Alkaline Phosphatase 86 U/L (40-130); Anion Gap 9.4 (5-19); Aspartate Amino Transferase 22 U/L (0-40); Blood Urea Nitrogen 49 mg/dL (8-23); Calcium 8.9 mg/dL (8.5-10.5); Chloride 88 mmol/L (98-107); Creatinine Clr Calc Pharmacy 63.7795; Glucose 124 mg/dL (65-115); Osmolality Calculated 292 mOsm/kg (285-295); Potassium 4.4 mmol/L (3.5-5.1); Sodium 134 mmol/L (136-145); Total Bilirubin 0.8 mg/dL (0.15-1.2); Total Protein 6.3 g/dL (6.6-8.7)
[2025-01-03 06:00] VITALS: BMI 30.8
[2025-01-03 06:06] LABS: Carbon Dioxide 41 mmol/L (22-29)
--- NOTE | 2025-01-03 07:36 | PM.MISC ---
Miscellaneous Note Note: Patient was ready for discharge early in the morning but could not be discharged as CT scan which was ordered on 01/02 was not done till 10 AM. Results awaited. Depending on the results we will go ahead and plan to discharge.
[2025-01-03] MEDS: budesonide 0.5 mg/2 mL Neb INHALATION (07:46)
[2025-01-03 07:48] VITALS: PULSE 70; RESP 18; O2SAT 97
[2025-01-03 08:00] VITALS: BP 98/64; PULSE 65; RESP 18; TEMP 36.3; O2SAT 97
[2025-01-03] MEDS: sennosides 8.6 mg Tablet 17.2 MG PO (11:06)
[2025-01-03] MEDS: acetaZOLAMIDE 250 mg Tablet 500 MG PO (11:06)
[2025-01-03] MEDS: metoprolol tartrate 25 mg Tablet 75 MG PO (11:07)
[2025-01-03] MEDS: amiodarone 200 mg Tablet PO (11:07)
[2025-01-03] MEDS: aspirin 81 mg EC Tablet PO (11:07)
[2025-01-03] MEDS: docusate sodium 100 mg Capsule PO (11:07)
[2025-01-03] MEDS: atorvastatin 40 mg Tablet 80 MG PO (11:07)
[2025-01-03] MEDS: magnesium hydroxide 30 mL UDC PO (11:08)
[2025-01-03] MEDS: baclofen 10 mg Tablet 5 MG PO (11:08)
[2025-01-03] MEDS: FUROsemide 10 mg/mL SDV 4mL 40 MG IVP (11:09)
[2025-01-03] MEDS: pantoprazole 40 mg SDV IVP (11:10)
[2025-01-03] MEDS: methylPREDNISolone sod succ 40 mg/mL INJ 20 MG IVP (11:10)
--- NOTE | 2025-01-03 11:29 | PM.DCS ---
Discharge Providers Date of Admission: 12/23/24 18:09 Date of Discharge: January 03, 2025 Attending Provider at Admission: Nitin Leigh MD Attending Provider at Discharge: Nitin Leigh MD Consults: Cardiology: Dr. Brown Primary Care Provider: Emile Fatima MD Diagnoses at Discharge Discharge Diagnosis (1) Hypoxia: Status: Acute (2) CHF (congestive heart failure): Status: Acute (3) COPD (chronic obstructive pulmonary disease): Status: Acute (4) Pneumonia: Status: Acute (5) Gross hematuria: Status: Acute (6) Abdominal distention: Status: Acute (7) Weakness: Status: Acute (8) CAD (coronary artery disease): Status: Acute (9) Atrial fibrillation: Status: Acute (10) Hypertrophic cardiomyopathy: Status: Acute (11) Influenza A: Status: Acute (12) Physical deconditioning: Status: Acute Reason for Visit Reason for Visit: SOB,dizzy Brief History: History as per HPI: John Gomes is a 79 year old male with past medical history of CABG, hypertension, hyperlipidemia presents to the ER today because of difficulty in breathing which has been getting worse over last 1 week. Patient has a sick contacts with multiple family members having flu a currently. He has been complaining of occasional chest heaviness for last 3 to 4 days. Currently he denies of having any chest pain or heaviness. In the ER he was found to have hypotension with blood pressures of 70 systolic, baseline troponin of 200 and she was started on dopamine drip. Current on examination he is on 2 L of oxygen supplementation, dopamine of 4 with a heart rate of 110 bpm with a blood pressure of 130 systolic. Hospital Course Hospital Course Patient was admitted to the hospital further evaluation and management of cardiogenic shock in setting of non-ST ovation MS, acute kidney injury, hypoxia in setting of influenza and superadded bacterial infection. He was started on broad-spectrum IV antibiotics, IV hydration, anticoagulation with heparin drip. Cardiology was consulted. For now patient was advised to continue with medical management for non-ST elevation MS given acute kidney injury on admission. Gradually patient improved. Renal functions improved back to baseline. Patient's hemodynamics became stable and he was transferred out of ICU to cardiac stepdown unit. Echocardiogram was done which showed a normal EF with severe LVH with concerns for hypertrophic cardiomyopathy. Given concerns of hypertrophic cardiomyopathy patient was treated further to control heart rate with amiodarone. Patient showing gradual improvement. Patient was due for Lexiscan stress test which he declined as he wants to follow-up with his outpatient green chain off bearer. His improvement was very gradual because of him developing congestive heart failure which was managed by IV diuretics while monitoring his renal functions, severe physical deconditioning. Given severe deconditioning further rehabitation were discussed in detail with the patient and patient's family with options of SNF placement versus home with home health. Family opted for SNF placement. Diet has been advanced as per speech evaluation. Speech therapy further advises patient to get a barium swallow as an outpatient given history of significant hiatal hernia. He has been discharged to SNF in hemodynamically stable condition after completion of IV antibiotics on steroid taper, Farxiga 10 mg oral daily, continuation of baby aspirin, daily 40 mg of oral Lasix along with Eliquis 5 mg twice daily for anticoagulation. Physical Exam Narrative: General: No acute distress, AO x3, nasal cannula, sick appearing, frail, generalized weak HEENT: PERRLA, pupils bilaterally equal and reactive Chest: Bronchial breath sounds all over lung pack occasional rhonchi diffusely present all over lung pack CVS: S1-S2 regular, no murmurs, tachycardia, no gallops, no rubs Abdomen: Soft, nontender, no organomegaly, bowel sounds present Neuro: No focal deficits, no facial deformity, AO x3, power 5/5 in all limbs Urinary Catheter Management: Coude: Cath Placed During This Visit: yes, but has since been removed by the nurse Reason for Continuing Indwelling Catheter: Decision to DC Catheter Urinary Catheter Date of Insertion: 12/28/24 Urinary Catheter Time of Insertion: 15:21 Date Urinary Catheter Removed: 01/02/25 Time Urinary Catheter Discontinued: 18:37 Discharge Data Studies Completed and Pending Completed Studies During Hospitalization Category Date Time Status CT abdomen pelvis wo con [id number] Routine Cat Scan 12/31/24 19:[address] [place] [id number] Stat Cat Scan 12/23/24 17:[address] head wo con* [id number] Routine Cat Scan 01/03/25 16:27 Completed XR abdomen 1V* [id number] Routine Exams 12/31/24 08:36 Completed XR chest 1V portable [id number] Routine Exams 12/27/24 08:12 Completed XR chest 1V portable [id number] Stat Exams 12/23/24 15:21 Completed US echo complete [CV. echo complete* [id number]] Stat Ultrasound 12/23/24 16:51 Completed Pending at discharge Category Date Time Status Sestamibi Stress Test Request Routine Exams 12/25/24 10:24 Stop Req SARS Covid-2 Antigen Routine Lab 01/03/25 10:58 Received Radiology Impressions Chest/Abdomen/Pelvis CT 12/23/24 17:36 IMPRESSION: 1. No acute abnormality. 2. Mild pulmonary emphysematous changes. 3. Atherosclerosis including coronary artery calcification. IMPRESSION: 1. No acute abnormality. 2. Severe atherosclerosis. 3. Questionable tiny gallstones versus gallbladder sludge. No signs of cholecystitis. COMMENTS: Consistent with the [employer]'s Incidental Findings Committee white paper (J Am Ankit Radiol 2018): Any incidental renal lesion less than 1 cm or classified as too small to characterize, or any incidental cystic renal lesion characterized as simple-appearing, is likely benign. No follow-up imaging is recommended for these lesions per consensus recommendations based on imaging criteria. Chest X-Ray 12/27/24 08:12 IMPRESSION: 1. Low lung volumes are present, accentuating cardiac size and pulmonary markings. 2. Nonspecific bilateral predominant peripheral opacities, atelectasis, edema and/or pneumonia. 3. Nonspecific distended bowel loops noted in visualized abdomen. Abdomen X-Ray 12/31/24 08:36 IMPRESSION: 1. Diffuse gaseous distension of predominantly large bowel loops could reflect distal colonic obstruction versus colonic pseudo-obstruction. This could be further assessed with CT if warranted. 2. The appearance of the sigmoid colon is favored to be redundant sigmoid colon rather than volvulus. Attention on follow-up imaging. Abdomen/Pelvis CT 12/31/24 19:39 IMPRESSION: 1. There is sigmoid colon diverticulosis. 2. The rectosigmoid colon is filled with fluid. There is gaseous distension of the sigmoid colon. There is gaseous distension of the transverse colon. No obstructive colonic lesion is seen. 3. There are peripheral infiltrates seen in the visualized upper lobes. Atypical pneumonia can not be excluded. Imaging follow-up until resolution is advised 4. Coronary calcifications are seen. 5. Bibasilar infiltrates/atelectasis changes are seen. 6. Prostate is enlarged measuring 5 cm. Correlation with patient's PSA level is advised. 7. There is intervertebral disc narrowing is seen at the L5-S1 level. 8. Mild calcified atherosclerotic changes are seen in the thoracic aorta. 9. Mild calcified atherosclerotic changes are seen throughout the abdominal aorta. Head CT 01/03/25 16:27 IMPRESSION: 1. No acute intracranial hemorrhage or edema. 2. Mild to moderate cerebral and cerebellar atrophy with small vessel disease. 3. Advanced vascular calcifications in the intracranial carotid arteries. Laboratory Results WBC 14.65 10^3/uL (3.29-11.43) H 01/03/25 05:08 RBC 4.90 10^6/uL (3.85-5.65) 01/03/25 05:08 Hgb 14.60 g/dL (11.27-16.99) 01/03/25 05:08 Hct 46.1 % (37-53) 01/03/25 05:08 MCV 94.1 fl (82-101) 01/03/25 05:08 MCH 29.8 pg (27-33) 01/03/25 05:08 MCHC 31.7 g/dL (30-55) 01/03/25 05:08 RDW 13.2 % (12.1-15.1) 01/03/25 05:08 Plt Count 145 10^3/cmm (157-399) L 01/03/25 05:08 MPV 11.0 fL (7.4-10.4) H 01/03/25 05:08 Neut % (Auto) 93.0 % 01/03/25 05:08 Lymph % (Auto) 2.7 % 01/03/25 05:08 [place] % (Auto) 3.7 % 01/03/25 05:08 Eos % (Auto) 0.0 % 01/03/25 05:08 Baso % (Auto) 0.1 % 01/03/25 05:08 Neut # (Auto) 13.63 10^3/uL (1.8-7.7) H 01/03/25 05:08 Lymph # (Auto) 0.4 10^3/uL (0.8-4.8) L 01/03/25 05:08 [place] # (Auto) 0.5 10^3/uL (0.2-0.9) 01/03/25 05:08 Eos # (Auto) 0.0 10^3/uL (0.0-0.8) 01/03/25 05:08 Baso # (Auto) 0.0 10^3/uL (0.0-0.1) 01/03/25 05:08 Nucleated RBC % (auto) 0 % 01/03/25 05:08 Nucleated RBCs # 0.0 /100WBC 01/03/25 05:08 APTT 58.9 SECONDS (23.9-36.7) H 12/26/24 06:26 Specimen Type Arterial 12/30/24 09:21 Sample Site Radial, left 12/30/24 09:21 ABG pH 7.28 (7.35-7.45) L 12/30/24 09:21 ABG pCO2 80.7 mmHg (35-45) H* 12/30/24 09:21 ABG pO2 62.6 mmHg (80.0-100.0) L 12/30/24 09:21 ABG PO2/FiO2 Ratio 319 12/28/24 12:50 ABG HCO3 37.9 mmol/L (22-26) H 12/30/24 09:21 ABG O2 Saturation 89.6 12/30/24 09:21 ABG Base Excess 7.4 mmol/L (-2.0-2.0) H 12/30/24 09:21 Phuc Test Pos 12/30/24 09:21 A-a O2 Gradient Not Reportable 12/30/24 09:21 Hematocrit 48.2 % (42-52) 12/30/24 09:21 Hgb O2 Saturation 87.6 % (95-100) L 12/30/24 09:21 Carboxyhemoglobin 1.1 %THgb (0.4-20.1) 12/30/24 09:21 Methemoglobin 1.1 % (0.4-1.5) 12/30/24 09:21 Total Hemoglobin 15.7 g/dL (14-18) 12/30/24 09:21 Sodium 134.0 mmol/L (131-143) 12/30/24 09:21 Potassium 4.5 mmol/L (3.5-5.0) 12/30/24 09:21 Glucose 171.0 mg/dL (70-115) H 12/30/24 09:21 Ionized Calcium 1.3 mmol/L (1.1-1.4) 12/30/24 09:21 O2 Delivery Device Nc 12/30/24 09:21 O2 Liters/Min 2.0 % 12/30/24 09:21 FiO2 30.0 % 12/28/24 12:50 PEEP 8.0 cmH20 12/28/24 12:50 Thermodynamic Physicist ID [place] 12/30/24 09:21 Sodium 134 mmol/L (136-145) L 01/03/25 05:08 Potassium 4.4 mmol/L (3.5-5.1) 01/03/25 05:08 Chloride 88 mmol/L (98-107) L 01/03/25 05:08 Carbon Dioxide 41 mmol/L (22-29) H 01/03/25 05:08 Anion Gap 9.4 (5-19) 01/03/25 05:08 BUN 49 mg/dL (8-23) H 01/03/25 05:08 Creatinine 1.1 mg/dL (0.7-1.2) 01/03/25 05:08 GFR Calculation Not Reportable 01/03/25 05:08 Glucose 124 mg/dL (65-115) H 01/03/25 05:08 Estimat Average Glucose 131 12/23/24 20:47 Hemoglobin A1c 6.2 % (4.0-6.0) H 12/23/24 20:47 Calculated Osmolality 292 mOsm/kg (285-295) 01/03/25 05:08 Lactic Acid 1.4 mmol/L (0.5-2.2) 12/23/24 16:45 Calcium 8.9 mg/dL (8.5-10.5) 01/03/25 05:08 Phosphorus 3.5 mg/dL (2.5-4.5) 01/02/25 06:19 Magnesium 2.5 mg/dL (1.7-2.3) H 01/02/25 06:19 Iron 27 ug/dL (59-158) L 12/23/24 16:45 TIBC 232 mcg/dl 12/23/24 16:45 % Saturation 11.6 % (20-50) L 12/23/24 16:45 Unsat Iron Binding 205 ug/dL (112-347) 12/23/24 16:45 Total Bilirubin 0.8 mg/dL (0.15-1.2) 01/03/25 05:08 AST 22 U/L (0-40) 01/03/25 05:08 ALT 25 U/L (0-41) 01/03/25 05:08 Alkaline Phosphatase 86 U/L (40-130) 01/03/25 05:08 Troponin T Baseline 202 ng/L (0-15) H* 12/23/24 16:45 Troponin T 120 Minute 181.1 ng/L (0-15) H 12/23/24 20:47 Delta Troponin T -20.9 ABS# (0-10) L 12/23/24 20:47 Troponin T Hi Sens 6Hr 174.2 ng/L (0-15) H 12/23/24 21:30 Troponin T Hi Sens 6Hr Delta -27.8 ng/L (0-12) L 12/23/24 21:30 C-Reactive Protein 3.0 mg/L (0.0-4.9) 01/01/25 03:27 NT-Pro-B Natriuret Pep 4522 pg/mL (0-450) H 12/23/24 16:45 Total Protein 6.3 g/dL (6.6-8.7) L 01/03/25 05:08 Albumin 3.3 g/dL (3.5-5.2) L 01/03/25 05:08 Globulin 3.0 g/dL (1.3-4.6) 01/03/25 05:08 Triglycerides 67 mg/dL (0-150) 12/24/24 05:21 Cholesterol 89 mg/dL (0-200) 12/24/24 05:21 LDL Cholesterol, Calc 41 mg/dL (50-129) L 12/24/24 05:21 HDL Cholesterol 35 mg/dL (60-100) L 12/24/24 05:21 LDL/HDL Ratio 1.17 RATIO (0.00-3.22) 12/24/24 05:21 Cholesterol/HDL Ratio 2.54 mg/dL (1.0-5.00) 12/24/24 05:21 Vitamin B12 452 pg/mL (232-1245) 12/23/24 16:45 Folate 9.4 ng/mL (4.5-32.2) 12/24/24 05:21 Procalcitonin 0.07 ng/mL (0-0.5) 01/01/25 03: TSH 2.34 uIU/mL (0.27-4.20) 12/23/24 20:47 Urine Color [place] (Yellow) A 12/27/24 12:26 Urine Appearance Cloudy (CLEAR) A 12/27/24 12: Urine pH 5.5 (5-7) 12/27/24 12:26 Ur Specific [place] 1.022 (1.005-1.030) 12/27/24 12: Urine Protein 2+ (Negative) A 12/27/24 12: Urine Glucose (UA) Negative (Normal) 12/27/24 12: Urine Ketones Negative (Negative) 12/27/24 12: Urine Blood 3+ (Negative) A 12/27/24 12: Urine Nitrate Negative (Negative) 12/27/24 12: Urine Bilirubin Negative (Negative) 12/27/24 12: Urine Urobilinogen 1.0 mg/dL (Negative) 12/27/24 12:26 Ur Leukocyte Esterase 1+ (Negative) A 12/27/24 12:26 Urine RBC Too numerous to cnt /hpf (0-2) H 12/27/24 12:26 Urine WBC 0-4 /hpf (0-5) H 12/27/24 12:26 Ur Squamous Epith Cells 0-4 /hpf (0-5) H 12/27/24 12:26 Amorphous Sediment Not Reportable 12/27/24 12:26 Urine Bacteria None /hpf (NONE) 12/27/24 12:26 Urine Mucus None /hpf 12/27/24 12:26 Nasal MRSA (PCR) Not detected (Negative) 12/23/24 18:38 Random Vancomycin 15.2 ug/mL (20.0-40.0) L 12/24/24 05:21 Influenza A (PCR) Positive (Negative) 12/23/24 15:13 Influenza Type B (PCR) Negative (Negative) 12/23/24 15:13 RSV (PCR) Negative (Negative) 12/23/24 15:13 SARS-CoV-2 (PCR) Negative (Negative) 12/23/24 15:13 Vitals Last Vital Signs Temp 97.4 F L 01/03/25 08:00 Pulse 65 01/03/25 08:00 Resp 18 01/03/25 08:00 BP 98/64 01/03/25 08:00 Pulse Ox 97 01/03/25 08:00 O2 Del Method Nasal Cannula 01/03/25 08:00 O2 Flow Rate 2 01/03/25 07:48 FiO2 30 01/01/25 16:05 Discharge Plan Discharge Patient Disposition: Xfer SNF Condition: Stable Prescriptions: New dapagliflozin propanediol [Farxiga] 10 mg tablet 10 mg PO QAM Qty: 30 3RF prednisone 10 mg tablet See Taper PO DIRECTED Qty: 20 0RF Taper: predniSONE 60-10 40 mg Daily for 2 Days and 0 Hour 30 mg Daily for 2 Days and 0 Hour 20 mg Daily for 2 Days and 0 Hour 10 mg Daily for 2 Days and 0 Hour Rx Instructions: see taper instructions amiodarone 200 mg tablet 200 mg PO DAILY Qty: 30 3RF aspirin [Adult Aspirin Regimen] 81 mg tablet,delayed release (DR/EC) 81 mg PO DAILY Qty: 30 3RF ipratropium-albuterol 0.5 mg-3 mg(2.5 mg base)/3 mL solution for nebulization 3 ml inhalation Q8H Qty: 180 0RF budesonide [Pulmicort] 0.5 mg/2 mL suspension for nebulization 0.25 mg inhalation Q12H Qty: 60 0RF metoprolol tartrate 75 mg tablet 75 mg PO BID Qty: 60 0RF Continued baclofen 10 mg tablet 10 mg PO QDAY Eliquis 5 mg tablet 5 mg PO BID melatonin 10 mg capsule 10 mg PO ONCE rosuvastatin 20 mg tablet 20 mg PO DAILY potassium chloride 20 mEq tablet,ER particles/crystals 20 meq PO BID Changed furosemide 20 mg tablet 40 mg PO QAM Qty: 60 0RF Discontinued metoprolol succinate 50 mg tablet extended release 24 hr 50 mg PO QDAY irbesartan 150 mg tablet 150 mg PO QDAY spironolactone 25 mg tablet 25 mg PO DAILY Discharge Orders: Discharge Order (Routine); Ordered 01/03/25 Ordered By: Nitin Leigh Other Ambulatory Orders: DME: BIPAP (Order) Location: None Selected Ordered By: Nitin Leigh [place] barium swallow gastro [id number] (Routine) Timeframe: 1 Week Facility: [facility] - Location: [facility] Ordered By: Nitin Leigh Referrals: [facility] [Outside] Emile Fatima MD [Primary Care Provider] - 7-10 days Discharge Diet: Cardiac and Diabetic Discharge Activity: Resume usual activity and Increase activity as tolerated Patient Instructions: Prednisone (By mouth), Dapagliflozin (By mouth), Influenza (ED), Opioid Safety Activity Restrictions/Additional Instructions: Restrict fluid intake to less than 1500 cc, salt intake to less than 2 g daily. Advised to check his weight daily at home. Is advised that weight today would be the dry weight and if body weight increases by around 5 pounds, patient is to take an extra dose of Lasix daily till body weight comes down to weight today. If not able to come down to dry body weight in 1 week, then is to call cardiology office for further recommendations. Patient was counseled in detail to take medications regularly as prescribed. Should follow-up with outpatient green chain off bearer at the earliest for further ACS workup once deemed stable from cardiology team. Discharge Attestations Time Spent in Discharge Care*: greater than 30 min Specific Discharge Activities: educating patient, educating and/or supporting family/caregiver, discussing with pcp/other providers, discussing with case making machine operator/social workers/dc planners, documenting/other paperwork and evaluating patient/reviewing data Quality Metrics Clinical Quality Measures [ Acute Myocardial Infaction { Clinical Trial Participant: No; Contraindication to aspirin: None; Aspirin prescribed; Contraindication to statin: None; Statin prescribed; Contraindication to PCI: Medical contraindication (Acute kidney injury); Contraindication to Fibrinolytics: None; fibrinolytics given}] Coding Level of Care Code 46942 Total time (in minutes) for Discharge: 60 Diagnoses Hypoxia R09.02 CHF (congestive heart failure) I50.9 COPD (chronic obstructive pulmonary disease) J44.9 Pneumonia J18.9 Gross hematuria R31.0 Abdominal distention R14.0 Weakness R53.1 CAD (coronary artery disease) I25.10 Atrial fibrillation I48.91 Hypertrophic cardiomyopathy I42.2 Influenza A J10.1 Physical deconditioning R53.81
[2025-01-03 12:00] VITALS: BP 119/67; PULSE 77; RESP 18; TEMP 36.5; O2SAT 100
[2025-01-03 12:00] LABS: SARS Covid-2 Antigen Negative (Negative)
--- NOTE | 2025-01-03 14:46 | PC.OT ---
OT TREATMENT HELD PATIENT IS SCHEDULED FOR D/C TODAY.
--- NOTE | 2025-01-03 16:27 | CT_ITS ---
WS: [id number] CT HEAD NONCONTRAST HISTORY: weakness TECHNIQUE: Contiguous axial imaging performed through the brain. Bone and soft tissue windows. Sagittal and coronal reformats reviewed. All CT scans at [facility] use at least one of these dose optimization techniques: automated exposure control; mA and/or kV adjustment per patient size (includes targeted exams where dose is matched to clinical indication); or iterative reconstruction. DLP: 1139.90 mGy.cm COMPARISON: None available. No acute intracranial hemorrhage, midline shift or mass effect. Mild to moderate bilateral cerebral and cerebellar atrophy with small vessel changes. No prior or acute infarct identified. Ventricles: Normal size with no hydrocephalus. Paranasal sinuses: Air-fluid level in the RIGHT maxillary sinus. The remaining sinuses are better aerated. Mastoid air cells: Well pneumatized. Calvarium and scalp: Skull is intact with no soft tissue edema or swelling. Scattered vertebral and intracranial carotid artery calcifications. More significant calcification in the intracranial carotid arteries. CT/CT head wo con* [id number] IMPRESSION: 1. No acute intracranial hemorrhage or edema. 2. Mild to moderate cerebral and cerebellar atrophy with small vessel disease. 3. Advanced vascular calcifications in the intracranial carotid arteries.
== END 2025-01-03 15:30 | disposition skilled nursing facility (03) | DRG 280 ==
LOC: ER 17:42 → ER IP 18:10 → ICU 18:11 → CSU 12-25 15:00 → MEDSURG 12-27 14:37
PROVIDERS: Emergency Medicine; Internal Medicine; Admitting Provider Student in an Organized Health Care Education/Training Program; Emergency Provider Family Medicine; PCP Family Medicine; Visit Provider Student in an Organized Health Care Education/Training Program
DX: I21.4 Non-ST elevation (NSTEMI) myocardial infarction (principal); I50.33 Acute on chronic diastolic (congestive) heart failure; J96.21 Acute and chronic respiratory failure with hypoxia; J18.9 Pneumonia, unspecified organism; R57.0 Cardiogenic shock; J96.02 Acute respiratory failure with hypercapnia; J44.1 Chronic obstructive pulmonary disease with (acute) exacerbation; J44.0 Chronic obstructive pulmonary disease with (acute) lower respiratory infection; I48.20 Chronic atrial fibrillation, unspecified; I42.2 Other hypertrophic cardiomyopathy; N17.9 Acute kidney failure, unspecified; E87.3 Alkalosis; J10.1 Influenza due to other identified influenza virus with other respiratory manifestations; I11.0 Hypertensive heart disease with heart failure; R31.0 Gross hematuria; I25.10 Atherosclerotic heart disease of native coronary artery without angina pectoris; Z95.1 Presence of aortocoronary bypass graft; E78.5 Hyperlipidemia, unspecified; I95.9 Hypotension, unspecified; K44.9 Diaphragmatic hernia without obstruction or gangrene; F17.220 Nicotine dependence, chewing tobacco, uncomplicated; R00.0 Tachycardia, unspecified; R14.0 Abdominal distension (gaseous); E86.0 Dehydration; E87.5 Hyperkalemia; N47.1 Phimosis
CPT/HCPCS: 36415; 36600; 51702; 70450; 71045; 71250; 74018; 74176; 80051; 80053; 80061; 80069; 80202; 81001; 82330; 82607; 82746; 82805; 83036; 83540; 83550; 83605; 83735; 83880; 84100; 84145; 84443; 84484; 85025; 85730; 86140; 87040; 87070; 87086; 87205; 87426; 87637; 92610; 93005; 93306; 94640; 94660; 94762; 96365; 96366; 96367; 96374; 96375; 96376; 97110; 97116; 97161; 97165; 97530; 97535; 99291; J0283; J0696; J1265; J1644; J1815; J1940; J2185; J2470; J2765; J2919; J3370; J7030; J7040; J7512; J7614; J7626; J7644; J7799; P9047; Q0144